=== PATIENT | female | born 1990 | race Caucasian/White ===

== ENCOUNTER 2019-10-12 11:19 | Outpatient (CLI) | payer OTHER, SELFPAY | END 2019-10-12 11:20 | disposition home or self-care (01) | LOC: ANHSURGERY 11:22 | PROVIDERS: PCP Family Medicine; Visit Provider Obstetrics & Gynecology | DX: Z01.812 Encounter for preprocedural laboratory examination (principal); N83.202 Unspecified ovarian cyst, left side | CPT/HCPCS: 36415; 86850; 86900; 86901 ==

== ENCOUNTER 2019-10-16 00:28 | Day surgery (SDC) | payer OTHER, SELFPAY ==
[2019-10-10 13:39] VITALS: BMI 31.6
--- NOTE | 2019-10-11 08:21 | PM.IMHP ---
H&P: HPI History of Present Illness Chief complaint: pelvic pain, left ovarian cyst Narrative: Doug Malik is a 28 year old female 4 para 3 who is admitted for laparoscopy and left ovarian cystectomy. She is complaining pain discomfort and dyspareunia. She uses vasectomy for control her periods have been irregular she is having pain with sex and pressure pelvis all the time. Ultrasound has shown left ovarian cyst. Risks, removed including the exclusive wish to Frances bleeding transfusion infection perforation injury bowel bladder ureters or other internal organs with need for open laparotomy. She was good understanding. She had all questions answered. She received the ACOG handout entitled laparoscopy. She asked to proceed Review of Systems Review of Systems: All systems reviewed & are unremarkable except as noted in HPI and below Meds Home Medications and Allergies Home Medications Medication Instructions Recorded Confirmed Type No Home Medications 10/10/19 10/10/19 History Allergies Allergy/AdvReac Type Severity Reaction Status Date / Time erythromycin base Allergy Unknown N/V, HIVES Verified 10/10/19 13:40 hydromorphone Allergy Unknown Hives / Unverified 10/10/19 13:40 Red Face, TACHYCARDIA codeine AdvReac Unknown N/V Unverified 10/10/19 13:40 Exam Const: General: no acute distress Eyes: General: appearance normal, both eyes and all related structures Neck: Neck: supple and no JVD Thyroid: thyroid normal Resp: Effort & Inspection: normal respiratory effort Auscultation: clear to auscultation bilaterally Cardio: Rate: regular rate Rhythm: regular rhythm GI: Inspection: non-distended GI Palp: Yes Soft to palpation, No Tenderness to palpation present (GI) and No Guarding due to palpation present (GI) Auscultation: normal bowel sounds : External Female Exam: normal external appearance Speculum Exam - Vagina: normal appearance of the vagina Speculum Exam - Cervix: normal appearance of the cervix Bimanual exam- vagina & uterus: bladder normal to palpation and uterine shape normal Bimanual Exam- Adnexa, other: tender (left fullness) Skin: General skin exam: no rashes or lesions noted Extrem: General: normal to inspection and no edema Psych: Mental Status: mental status grossly normal Affect: normal affect Assessment and Plan Additional Plan impression: Pelvic pain and left ovarian cyst. Plan: The laparoscopy and left ovarian cystectomy
[2019-10-16] VITALS (12 sets, daily range): BP systolic 99–122; BP diastolic 41–71; PULSE 62–79; RESP 12–24; TEMP 36.2–37.1; O2SAT 96–100; BMI 31.8
--- NOTE | 2019-10-16 09:13 | P.PNAN_ITS ---
Anes - Initial Pre Proc Eval Procedure: Operation Date: 10/16/19 10:00 Proposed Procedures p Diagnostic Laparoscopy, Left Ovarian Cystectomy - Arya Evans MD Date/Time: 10/16/19 09:13 Surgeon: Arya Evans MD Pre Op Diagnosis: pelvic pain, left ovarian cyst Patient Data Age: 28 Gender: F Height: 5 ft 3 in Weight: 81.19 kg Allergies Allergy/AdvReac Type Severity Reaction Status Date / Time erythromycin base Allergy Unknown N/V, HIVES Verified 10/16/19 08:39 hydromorphone Allergy Unknown Hives / Unverified 10/16/19 08:39 Red Face, TACHYCARDIA codeine AdvReac Unknown N/V Unverified 10/16/19 08:39 Home Medications Medication Instructions Recorded Confirmed Type hydrocodone-acetaminophen [[place]] 1 tablet PO Q4H PRN #30 tablet 10/16/19 Rx Patient hx anesthesia problems: none Family hx anesthesia problems: none PMFSH Past Medical History Medical History Depression Anes - Eval Final PreProcedure Day of Procedure 10/16/19 09:13 Patient weight: obese Heart: regular rate and rhythm Lungs: clear to auscultation Airway: Mallampati scale class II Neurological: alert and oriented Last oral intake: >/= 8 hours ASA classification: II Emergent: no Anesthetic plan: proceed Anesthesia type and monitoring: general ETT and standard monitoring Informed Consent: The patient's anesthetic plan and its attendant risks and benefits were discussed with the patient/family/POA. Questions were solicited and answers provided to the satisfaction of the patient/family/POA.
[2019-10-16] MEDS: LACTATED RINGERS 1,000 ML 30 ML IV CONT ×2 (09:16→10:50)
--- NOTE | 2019-10-16 09:52 | WPDHPUPDATE1 ---
History and Physical Update Update Date/Time: 10/16/19 09:52 History and Physical has been reviewed, including an updated exam of the patient. There are NO changes in the patient's condition. Risks, benefits, and alternatives have been discussed and questions answered. Patient agrees to proceed with procedure.
[2019-10-16] MEDS: KETOROLAC 30 MG/ML VIAL (*BKC) IV PUSH (10:15)
--- NOTE | 2019-10-16 10:26 | PM.PROC ---
Procedure Note - Detailed Date of procedure: 10/16/19 Pre-op diagnosis: pelvic pain, left ovarian cyst Surgeon: Arya Evans MD Postop diagnosis: Pelvic pain/bilateral ovarian cysts/minimal endometriosis Procedure: Laparoscopic destruction of bilateral ovarian cysts, destruction of endometriosis Anesthesia: General endotracheal EBL: 5cc Complications: None Findings: Bilateral ovarian cysts simple in nature small area of powder burn endometriosis along the left uterosacral ligament. Normal-appearing pelvis otherwise. Description procedure: The patient was prepped draped in the normal sterile fashion placed in the dorsal lithotomy position. Under excellent general tracheal anesthesia weighted speculum was placed post for vagina. Anterior lip of cervix was grasped with single-tooth tenaculum attached to the single-tooth to be used later for uterine manipulation. Bladder was emptied of clear urine. The weighted speculum was removed. Gloves were changed. An infraumbilical incision made and the Veress needle passed in the abdomen. The abdomen filled with CO2 gas [id number]. The 5mm trocar was advanced under direct visualization assuring no injury. The patient placed in Trendelenburg Trendelenburg. 5mm trocar was advanced in suprapubic area under direct visualization assuring no injury. Irrigation was undertaken to clear small area of endometriosis in the form of a blister was seen on the left uterosacral this was cauterized at 35 w per 2nd with monopolar cautery. The ovarian cysts were drained bilaterally of clear follicular fluid. Irrigation was undertaken to clear no other abnormalities were seen. The lower sites removed. The gas removed from the abdomen. The upper site removed. The incisions closed with 4 O Monocryl and glue. Instruments were from the vagina. All sponge, needle, instrument counts were correct. There were no immediate complications
--- NOTE | 2019-10-16 11:18 | SUR.PHASEI ---
1118 - CALLED AND UPDATED
== END 2019-10-16 13:36 | disposition home or self-care (01) ==
PROVIDERS: PCP Family Medicine; Visit Provider Obstetrics & Gynecology
PROC: (CPT 49320; principal; 2019-10-16 10:00)
DX: N83.202 Unspecified ovarian cyst, left side (principal); N83.201 Unspecified ovarian cyst, right side; N80.3 Endometriosis of pelvic peritoneum; R10.2 Pelvic and perineal pain; F32.9 Major depressive disorder, single episode, unspecified; E66.9 Obesity, unspecified; Z68.31 Body mass index [BMI] 31.0-31.9, adult
CPT/HCPCS: 58662; A9270; J0330; J1100; J1200; J1885; J2250; J2405; J2704; J3010; J7120

== ENCOUNTER 2020-02-14 00:22 | Outpatient (CLI) | payer OTHER, SELFPAY ==
[2020-02-14 18:11] LABS: SARS-CoV-2 RNA PCR Negative
== END 2020-02-14 00:23 | disposition home or self-care (01) ==
LOC: ANHCOVIDDT 00:22
PROVIDERS: Visit Provider Obstetrics & Gynecology
DX: Z20.828 Contact with and (suspected) exposure to other viral communicable diseases (principal); Z01.812 Encounter for preprocedural laboratory examination
CPT/HCPCS: 87635; C9803; U0003

== ENCOUNTER 2020-02-14 10:00 | Outpatient (CLI) | payer OTHER, SELFPAY ==
[2020-02-14 10:29] LABS: Hematocrit 45.4 % (37.0-47.0); Hemoglobin 15.7 g/dL (12.0-15.0)
== END 2020-02-14 10:01 | disposition home or self-care (01) ==
PROVIDERS: Visit Provider Obstetrics & Gynecology
DX: N92.6 Irregular menstruation, unspecified (principal)
CPT/HCPCS: 36415; 85014; 85018

== ENCOUNTER 2020-02-16 04:53 | Day surgery (SDC) | payer OTHER, SELFPAY ==
--- NOTE | 2020-02-13 07:54 | P.HP_ITS ---
H&P: HPI History of Present Illness Chief complaint: Uterine Polyp/ Irregular Bleeding Narrative: Catarena Irvin Malik is a 29 year old female is admitted for hysteroscopy and polypectomy and D&C. This had bleeding pain and discomfort. She had laparoscopic destruction of endometriosis in September and felt better. She continued to bleed irregularly since however an ultrasound shows thickened area with suspected uterine polyp risks and benefits of the procedure reviewed. Review of Systems Review of Systems: All systems reviewed & are unremarkable except as noted in HPI and below PMFSH Past Medical History Medical History Depression Meds Home Medications and Allergies Home Medications Medication Instructions Recorded Confirmed Type hydrocodone-acetaminophen [[place]] 1 tablet PO Q4H PRN #30 tablet 10/16/19 Rx Allergies Allergy/AdvReac Type Severity Reaction Status Date / Time erythromycin base Allergy Unknown N/V, HIVES Verified 10/16/19 08:39 hydromorphone Allergy Unknown Hives / Verified 10/16/19 10:50 Red Face, TACHYCARDIA codeine AdvReac Unknown N/V Verified 10/16/19 10:50 Exam Const: General: no acute distress Eyes: General: appearance normal, both eyes and all related structures Neck: Neck: supple and no JVD Thyroid: thyroid normal Resp: Effort & Inspection: normal respiratory effort Auscultation: clear to auscultation bilaterally Cardio: Rate: regular rate Rhythm: regular rhythm GI: Inspection: non-distended GI Palp: Yes Soft to palpation, No Tenderness to palpation present (GI) and No Guarding due to palpation present (GI) Auscultation: normal bowel sounds : General: Yes bladder normal to inspection External Female Exam: normal external appearance Bimanual exam- vagina & uterus: Uterine tenderness Bimanual Exam- Adnexa, other: tender OB/external & speculum: Active bleeding present Skin: General skin exam: no rashes or lesions noted Extrem: General: normal to inspection and no edema Psych: Mental Status: mental status grossly normal Affect: normal affect Assessment and Plan Additional Plan Impression: Excessive heavy bleeding with suspected polyp Plan: Hysteroscopy / polypectomy / dilatation curettage
[2020-02-13 08:10] VITALS: BMI 33.5
--- NOTE | 2020-02-16 06:32 | WPDHPUPDATE1 ---
History and Physical Update Update Date/Time: 02/16/20 06:32 History and Physical has been reviewed, including an updated exam of the patient. There are NO changes in the patient's condition. Risks, benefits, and alternatives have been discussed and questions answered. Patient agrees to proceed with procedure.
[2020-02-16] MEDS: LACTATED RINGERS 1,000 ML 30 ML IV CONT (09:05)
[2020-02-16] MEDS: ONDANSETRON INJ 4 MG/2 ML VIAL IV PUSH (09:05)
--- NOTE | 2020-02-16 09:31 | P.PNAN_ITS ---
Anes - Initial Pre Proc Eval Procedure: Operation Date: 02/16/20 10:30 Proposed Procedures p Hysteroscopy Dilation And Curettage, Polypectomy - Arya Evans MD Date/Time: 02/16/20 09:31 Surgeon: Arya Evans MD Pre Op Diagnosis: Uterine Polyp/ Irregular Bleeding Patient Data Age: 29 Gender: F Height: 5 ft 3 in Weight: 84.7 kg Allergies Allergy/AdvReac Type Severity Reaction Status Date / Time erythromycin base Allergy Unknown N/V, HIVES Verified 02/16/20 09:08 hydromorphone Allergy Unknown Hives / Verified 02/16/20 09:08 Red Face, TACHYCARDIA Home Medications Medication Instructions Recorded Confirmed Type acetaminophen [Tylenol] 325 mg PO DIRECTED PRN 02/13/20 02/16/20 History ibuprofen 200 mg PO Q6H PRN 02/13/20 02/16/20 History Patient hx anesthesia problems: none Family hx anesthesia problems: none [facility] Past Medical History Medical History Depression Social History Social History Gender identity (if verbalized by the patient): Female Anes - Eval Final PreProcedure Day of Procedure 02/16/20 09:31 Patient weight: obese Heart: regular rate and rhythm Lungs: clear to auscultation Airway: Mallampati scale class II Neurological: alert and oriented ASA classification: II Emergent: no Anesthetic plan: proceed Anesthesia type and monitoring: general GIVS and standard monitoring Informed Consent: The patient's anesthetic plan and its attendant risks and benefits were discussed with the patient/family/POA. Questions were solicited and answers provided to the satisfaction of the patient/family/POA.
[2020-02-16 09:34] VITALS: BP 112/64; PULSE 60; RESP 18; TEMP 36.2; O2SAT 100
--- NOTE | 2020-02-16 09:59 | PM.PROC ---
Procedure Note - Detailed Date of procedure: 02/16/20 Pre-op diagnosis: Uterine Polyp/ Irregular Bleeding Surgeon: Arya Evans MD Postop diagnosis: Irregular bleeding Procedure: Hysteroscopy / dilatation curettage Anesthesia: IV sedation and local Findings: Uterus sounded 8cm. Thick endometrial tissue Complications: None EBL: 5Cc Description of procedure: The patient was prepped and draped in normal sterile fashion and placed in the dorsal lithotomy position. Under excellent IV sedation weighted speculum placed in posterior fornix of vagina. Anterior lip of the cervix grasped with a single-tooth tenaculum. 2.5cc of 1% xylocaine anesthesia placed at 2, 4, 8, 10:00 a.m. of the cervix. Uterus sounded to 8cm. Serial dilatation with fragmented dilators performed. This was followed by passes the 5mm visualizing hysteroscope using normal saline as visualizing medium. Each fallopian tube os could be seen. Thick endometrial tissue was seen with clots but no evidence of polyp. The uterus was then scraped over the entire 360?. This was performed until a good grating sound was heard. When instruments were then removed. All sponge, needle, instrument counts were correct. There were no immediate complications
[2020-02-16 10:00] VITALS: BP 112/65; PULSE 65; RESP 14; O2SAT 94
[2020-02-16 10:30] VITALS: BP 114/64; PULSE 60; RESP 14
[2020-02-16 10:55] VITALS: BP 111/65; PULSE 65; RESP 18
[2020-02-16 11:15] VITALS: BP 115/74; PULSE 52; RESP 18
== END 2020-02-16 11:37 | disposition home or self-care (01) ==
PROVIDERS: Visit Provider Obstetrics & Gynecology
PROC: 0U5B8ZZ Destruction of Endometrium, Via Natural or Artificial Opening Endoscopic (ICD-10-PCS; CPT 58563; principal; 2020-02-16 10:30)
DX: N93.9 Abnormal uterine and vaginal bleeding, unspecified (principal); F32.9 Major depressive disorder, single episode, unspecified; E66.9 Obesity, unspecified; Z68.33 Body mass index [BMI] 33.0-33.9, adult
CPT/HCPCS: 58558; 88305; A9270; J2250; J2405; J2704; J7030; J7120

== ENCOUNTER 2020-03-12 11:28 | Emergency (ER) | payer OTHER, SELFPAY ==
[2020-03-12 11:41] VITALS: BP 122/78; PULSE 67; RESP 16; TEMP 36.9; O2SAT 100
[2020-03-12 12:19] LABS: Basophils Absolute Auto 0.1 K/mm3 (0.0-0.1); Basophils Percent Auto 1.8 % (0.2-1.2); Eosinophils Absolute Auto 0.2 K/mm3 (0-0.3); Eosinophils Percent Auto 2.6 % (0-4.4); Hematocrit 43.3 % (37.0-47.0); Immature Granulocyte Absolute 0.01 K/mm3 (0.00-0.031); Immature Granulocyte Percent A 0.2 % (0-0.5); Lymphocytes Absolute Auto 2.66 K/mm3 (0.9-3.2); Lymphocytes Percent Auto 40.8 % (18.3-44.2); Mean Corpuscular HGB Conc 34.6 g/dl (32-36); Mean Corpuscular Hemoglobin 28.6 pg (26-34); Mean Corpuscular Volume 82.6 fl (80-100); Mean Platelet Volume 10.1 fl (7.4-10.4); Monocytes Absolute Auto 0.5 K/mm3 (0.1-0.6); Monocytes Percent Auto 7.1 % (2.6-8.5); Neutrophils Absolute Auto 3.1 K/mm3 (1.3-6.7); Neutrophils Percent Auto 47.5 % (45.5-73.1); Platelet Count Result 314 k/mm3 (150-375); Red Blood Count 5.24 M/mm3 (4.2-5.4); Red Cell Distribution Width 11.8 % (11.5-14.5); White Blood Count 6.5 K/mm3 (4.5-10.0)
[2020-03-12 12:31] LABS: Blood Urea Nitrogen 8 mg/dL (7-17); Calcium 9.3 mg/dL (8.4-10.2); Carbon Dioxide 27 mmol/L (22-30); Chloride 105 mmol/L (98-107); Estimated CRCL calculation 124 ml/min; Estimated Glomerular Filt Rate > 60; Glucose 93 mg/dL (65-105); Potassium 4.1 mmol/L (3.4-5.0); Sodium 139 mmol/L (137-145)
--- NOTE | 2020-03-12 13:18 | ED.FEMALEGU ---
HPI - Female Genitourinary General Chief complaint: Vaginal Bleeding Stated complaint: heavy vag bleeding, abd pain Time Seen by Provider: 03/12/20 13:17 History of Present Illness HPI Narrative: Heavy vaginal bleeding and pelvic pain since yesterday. Reports going through greater than 1 pad per hour. Pain is severe and bilateral. She has a h/o endometriosis and irregular periods. She had an ablation 1 month ago. No fever, chills, nausea, vomiting, diarrhea. Related Data Home Medications Medication Instructions Recorded Confirmed acetaminophen [Tylenol] 325 mg PO DIRECTED PRN 02/13/20 02/16/20 ibuprofen 200 mg PO Q6H PRN 02/13/20 02/16/20 Allergies Allergy/AdvReac Type Severity Reaction Status Date / Time erythromycin base Allergy Unknown N/V, HIVES Verified 02/16/20 09:08 hydromorphone Allergy Unknown Hives / Verified 02/16/20 09:08 Red Face, TACHYCARDIA Review of Systems Review of Systems: All systems reviewed & are unremarkable except as noted in HPI and below PMFSH Past Medical History Medical History Depression Endometriosis Surgical History Surgical History History of endometrial ablation Social History Social History Gender identity (if verbalized by the patient): Female Exam Const: General: healthy appearing, no acute distress and alert Orientation/consciousness: patient oriented x3 HENMT: Head: normal to inspection Neck: Neck: normal visual inspection and no lymphadenopathy Chest: Chest palpation & inspection: no tenderness Resp: Effort & Inspection: normal respiratory effort Auscultation: clear to auscultation bilaterally, no rales, no rhonchi and no wheezes Cardio: Jugular venous distension: no JVD Rate: regular rate Rhythm: regular rhythm Heart sounds: no murmurs GI: Inspection: non-distended GI Palp: Yes Soft to palpation and No Tenderness to palpation present (GI) : Speculum Exam - Vagina: normal appearance of the vagina and vaginal bleeding (moderate bleeding) Skin: General skin exam: normal color Neuro: General: patient oriented x3 and moves all extremities Speech: normal speech Extrem: General: no edema Psych: Appearance: well kempt Affect: normal affect Course Vital Signs Vital signs: Vital Signs Temperature 36.9 C 03/12/20 11:41 Pulse Rate 67 03/12/20 11:41 Respiratory Rate 16 03/12/20 11:41 Blood Pressure 122/78 03/12/20 11:41 Pulse Oximetry 100 03/12/20 11:41 Temperature 36.9 C 03/12/20 11:41 Pulse Rate 51 L 03/12/20 15:50 Respiratory Rate 20 03/12/20 15:50 Blood Pressure 111/74 03/12/20 15:50 Pulse Oximetry 99 03/12/20 15:50 MDM - Female Genitourinary MDM Narrative Medical decision making narrative: H/H stable. Case discussed with Dr. Evans. Recommends starting Provera and having her follow-up with him. Medical Records Attestation: I reviewed the patient's medical records. Lab Data Attestation: I reviewed the patient's lab results. Result diagrams: 03/12/20 11:55 03/12/20 11:55 Labs: Lab Results 03/12/20 03/12/20 03/12/20 Range/Units 11:55 11:55 13:24 WBC 6.5 (4.5-10.0) K/mm3 RBC 5.24 (4.2-5.4) M/mm3 Hgb 15.0 (12.0-15.0) g/dL Hct 43.3 (37.0-47.0) % MCV 82.6 (80-100) fl MCH 28.6 (26-34) pg MCHC 34.6 (32-36) g/dl RDW 11.8 (11.5-14.5) % Plt Count 314 (150-375) k/mm3 MPV 10.1 (7.4-10.4) fl Immature Gran % (Auto) 0.2 (0-0.5) % Neut % (Auto) 47.5 (45.5-73.1) % Lymph % (Auto) 40.8 (18.3-44.2) % [place] % (Auto) 7.1 (2.6-8.5) % Eos % (Auto) 2.6 (0-4.4) % Baso % (Auto) 1.8 H (0.2-1.2) % Lymph # (Auto) 2.66 (0.9-3.2) K/mm3 [place] # (Auto) 0.5 (0.1-0.6) K/mm3 Eos # (Auto) 0.2 (0-0.3) K/mm3 Baso # (Auto)
[2020-03-12 13:40] LABS: Add Urine Microscopic? YES; Appearance Urine Cloudy (Clear); Bacteria Urine Trace /hpf; Bilirubin Urine Negative (Negative); Blood Urine 3+ (Negative); Color Urine Yellow (Yellow); Glucose Urine UA Negative (Negative); Ketones Urine Negative (Negative); Leukocyte Esterase Ur Negative LEU/UL (Negative); Mucus Urine Few /lpf; Nitrate Urine Negative (Negative); Protein Urine 1+ mg/dL (Negative); RBC Urine >75 /hpf (0-2); Specific Grav Ur 1.018 (1.001-1.035); Squamous Epithelial Cell Urine Rare /hpf (Few); Urobilinogen Urine Negative mg/dL (<2.0)
[2020-03-12 15:50] VITALS: BP 111/74; PULSE 51; RESP 20; O2SAT 99
== END 2020-03-12 16:14 | disposition home or self-care (01) ==
PROVIDERS: Emergency Provider Emergency Medicine
DX: N92.1 Excessive and frequent menstruation with irregular cycle (principal)
CPT/HCPCS: 36415; 80048; 81001; 81025; 85025; 87086; 99284; A9270

== ENCOUNTER 2020-03-22 08:23 | Outpatient (CLI) | payer OTHER, SELFPAY | END 2020-03-22 08:24 | disposition home or self-care (01) | PROVIDERS: Visit Provider Obstetrics & Gynecology | DX: Z01.818 Encounter for other preprocedural examination (principal); Z98.890 Other specified postprocedural states | CPT/HCPCS: 36415; 86850; 86900; 86901 ==

== ENCOUNTER 2020-03-27 01:14 | Outpatient (CLI) | payer OTHER, SELFPAY ==
[2020-03-27 19:18] LABS: SARS-CoV-2 RNA PCR Negative
== END 2020-03-27 01:15 | disposition home or self-care (01) ==
LOC: ANHCOVIDDT 01:14
PROVIDERS: Visit Provider Obstetrics & Gynecology
DX: Z01.812 Encounter for preprocedural laboratory examination (principal); Z11.59 Encounter for screening for other viral diseases
CPT/HCPCS: 87635; C9803; U0003

== ENCOUNTER 2020-03-29 02:34 | Day surgery (SDC) | payer OTHER, SELFPAY ==
[2020-03-20 09:24] VITALS: BMI 32.2
--- NOTE | 2020-03-27 10:35 | PM.IMHP ---
H&P: HPI History of Present Illness Chief complaint: Pelvic Pain, Irr Bleeding, Dypurenia, Enlarged [place] Narrative: Doug Malik is a 29 year old female G4 P for 6 minutes for robotic total vaginal tract me and bilateral salpingectomy. She has had a long history of pelvic pain and dyspareunia bleeding has been refractory to medical therapy she has had a enlarged ultra sound uterus and prolapse. She has underwent D&C and laparoscopy help permanence of this was reviewed full details risks and benefits were reviewed including but not exclusive , aspiration pneumonia, bleeding, transfusion, perforation injury to bowel, bladder, ureters or other internal organs with need for laparotomy. She voiced good understanding. She received the ACOG handout entitled hysterectomy as well as div in she handout. She had all questions answered and asked to proceed Review of Systems Review of Systems: All systems reviewed & are unremarkable except as noted in HPI and below PMFSH Past Medical History Medical History Depression Endometriosis Surgical History Surgical History History of endometrial ablation Social History Social History Smoking status: Never smoker Gender identity (if verbalized by the patient): Female Spiritual care concerns: No Meds Home Medications and Allergies Home Medications Medication Instructions Recorded Confirmed Type acetaminophen [Tylenol] 325 mg PO DIRECTED PRN 02/13/20 03/20/20 History ibuprofen 200 mg PO Q6H PRN 02/13/20 03/20/20 History medroxyprogesterone [Provera] 10 mg PO DAILY #20 tablet 03/12/20 03/20/20 Rx Allergies Allergy/AdvReac Type Severity Reaction Status Date / Time erythromycin base Allergy Unknown N/V, HIVES Verified 03/20/20 09:25 hydromorphone Allergy Unknown Hives / Verified 03/20/20 09:25 Red Face, TACHYCARDIA Exam Const: General: no acute distress Eyes: General: appearance normal, both eyes and all related structures Neck: Neck: supple and no JVD Thyroid: thyroid normal Resp: Effort & Inspection: normal respiratory effort Auscultation: clear to auscultation bilaterally Cardio: Rate: regular rate Rhythm: regular rhythm GI: Inspection: non-distended GI Palp: Yes Soft to palpation, No Tenderness to palpation present (GI) and No Guarding due to palpation present (GI) Auscultation: normal bowel sounds : General: Yes bladder normal to inspection External Female Exam: normal external appearance Speculum Exam - Vagina: normal appearance of the vagina Speculum Exam - Cervix: normal appearance of the cervix ( second-degree prolapse is seen) Bimanual exam- vagina & uterus: enlarged and Uterine tenderness Bimanual Exam- Adnexa, other: normal adnexae Skin: General skin exam: no rashes or lesions noted Extrem: General: normal to inspection and no edema Psych: Mental Status: mental status grossly normal Affect: normal affect Assessment and Plan Additional Plan impressure: Pelvic prolapse/ pelvic pain / bleeding refractory to medical therapy Plan: Robotic total vaginal hysterectomy and bilateral salpingectomy
--- NOTE | 2020-03-28 11:56 | P.PNAN_ITS ---
Anes - Initial Pre Proc Eval Procedure: Operation Date: 03/29/20 07:30 Proposed Procedures p Robotic Assisted Total Vaginal Hysterectomy With Bilateral Salpingectomy - Arya Evans MD Date/Time: 03/28/20 11:56 Surgeon: Arya Evans MD Pre Op Diagnosis: Pelvic Pain, Irr Bleeding, Dypurenia, Enlarged [place] Patient Data Age: 29 Gender: F Height: 5 ft 3 in Weight: 82.55 kg Allergies Allergy/AdvReac Type Severity Reaction Status Date / Time erythromycin base Allergy Unknown N/V, HIVES Verified 03/29/20 06:37 hydromorphone Allergy Unknown Hives / Verified 03/29/20 06:37 Red Face, TACHYCARDIA Home Medications Medication Instructions Recorded Confirmed Type acetaminophen [Tylenol] 325 mg PO DIRECTED PRN 02/13/20 03/29/20 History ibuprofen 200 mg PO Q6H PRN 02/13/20 03/29/20 History medroxyprogesterone [Provera] 10 mg PO DAILY #20 tablet 03/12/20 03/29/20 Rx hydrocodone-acetaminophen [[place]] 1 tablet PO Q4H PRN #30 tablet 03/29/20 Rx Patient hx anesthesia problems: none Family hx anesthesia problems: none PMFSH Past Medical History Medical History Depression Endometriosis Surgical History Surgical History History of endometrial ablation Social History Social History Smoking status: Never smoker Gender identity (if verbalized by the patient): Female Spiritual care concerns: No Anes - Eval Final PreProcedure Day of Procedure 03/28/20 11:56 Patient weight: normal Heart: regular rate and rhythm Lungs: clear to auscultation Airway: Mallampati scale class II Neurological: alert and oriented Last oral intake: >/= 8 hours ASA classification: II Emergent: no Anesthetic plan: proceed Anesthesia type and monitoring: general ETT and standard monitoring Informed Consent: The patient's anesthetic plan and its attendant risks and benefits were discussed with the patient/family/POA. Questions were solicited and answers provided to the satisfaction of the patient/family/POA.
[2020-03-29] VITALS (16 sets, daily range): BP systolic 100–132; BP diastolic 49–74; PULSE 55–104; RESP 12–20; TEMP 36.2–37.1; O2SAT 95–100; BMI 32.2
--- NOTE | 2020-03-29 06:40 | WPDHPUPDATE1 ---
History and Physical Update Update Date/Time: 03/29/20 06:40 History and Physical has been reviewed, including an updated exam of the patient. There are NO changes in the patient's condition. Risks, benefits, and alternatives have been discussed and questions answered. Patient agrees to proceed with procedure.
[2020-03-29] MEDS: LACTATED RINGERS 1,000 ML 30 ML IV CONT ×3 (06:50→09:09)
[2020-03-29] MEDS: ceFAZolin 2 GM/D5W 50 ML 2 GM/50 ML BAG IVPB (07:23)
[2020-03-29] MEDS: KETOROLAC 30 MG/ML VIAL (*BKC) IV PUSH ×2 (07:41→13:35)
--- NOTE | 2020-03-29 08:25 | PM.PROC ---
Procedure Note - Detailed Date of procedure: 03/29/20 Pre-op diagnosis: Pelvic Pain, Irr Bleeding, Dypurenia, Enlarged [place] Surgeon: Arya Evans MD Postop diagnosis: Pelvic pain /irregular bleeding /dyspareunia /enlarged uterus Procedure: Robotic total vaginal hysterectomy and bilateral salpingectomies EBL: 50cc Anesthesia: General endotracheal Complications: None Findings: Enlarged uterus Description of procedure: The patient was prepped and draped in the normal sterile fashion and placed in the dorsal lithotomy position. Under excellent general endotracheal anesthesia weighted speculum was placed in the posterior fornix of the vagina. Anterior lip of the cervix was grasped with a single-tooth tenaculum. Uterus sounded to 10cm. Serial dilatation with fragmented dilators was performed. This was followed by passage of the 10. ESDRAS and the 3. Cold cup. A 16 [place] catheter was then placed. The remainder the instruments remove and gloves were changed. A supraumbilical incision was made and the Veress needle passed in the abdomen. The abdomen was filled with CO2 gas [id number]. The 8mm trocar was advanced in the abdomen. The downside visualized. No injury seen. The patient was placed in Trendelenburg. 8Mm incisions were made the right left lower quadrant and the 8mm trocars advanced under direct visualization assuring no injury. A right upper quadrant incision made and the 10mm trocar advanced under direct visualization assuring no injury. The robot was docked. Attention was turned to the console. The left round ligament was grasped. Clamped, burned, cut and a incision made across the cervix retracting the bladder caudally from the uterus and cervix to the opposite round ligament. This was clamped, burned, cut. Next the left tube was dissected away from the ovary. To be taken with the specimen. The right fallopian tube was removed in the same manner. Next the left utero-ovarian ligament was skeletonized conserving left ovary clamped, burned, cut and brought to the level of the previously cut round ligament. Conserving the right ovary the utero-ovarian ligament was clamped, burned, cut and brought to the level of the previously cut round ligament. The left cardinal and broad ligaments were then serially skeletonized. These were clamped, burned, cut and brought down the lateral edge of the uterus once the uterine vessels could be seen there were large and tortuous. Each was individually clamped, burned, cut. In like fashion the cardinal and broad ligaments were serially skeletonized. They were clamped, burned, cut until the uterine vessels could be seen these were individually clamped, burned, cut. Excellent blanching the uterus was seen and a colpotomy incision was made. The cervix uterus and tubes removed through the vagina. Blood loss estimated about 50cc the vagina was closed with continuous running 0V lock from lateral edge to lateral edge and back to the midline. Irrigation undertaken until clear and the pedicles appeared dry. The base was then sprinkled with [place] derm in the raw areas. The robot was undocked. The gas removed from the abdomen. The trocars were removed and the incisions closed with 4 Monocryl and glue. The patient was awakened. All sponge, needle, instrument counts were correct. There were no immediate complications
[2020-03-29] MEDS: DEXTROSE 5%/LACTATED RINGERS 1,000 ML 125 ML IV CONT (10:34)
[2020-03-29] MEDS: DOCUSATE SODIUM 100 MG CAPSULE PO (19:00)
[2020-03-29] MEDS: SIMETHICONE 80 MG TAB.CHEW PO (22:15)
[2020-03-29] MEDS: IBUPROFEN 600 MG TABLET PO (22:15)
[2020-03-30 02:49] VITALS: PULSE 88; RESP 14; O2SAT 95
[2020-03-30] MEDS: IBUPROFEN 600 MG TABLET PO ×2 (04:41→12:33)
[2020-03-30] MEDS: SIMETHICONE 80 MG TAB.CHEW PO ×2 (04:43→09:40)
[2020-03-30 04:45] VITALS: BP 103/56; PULSE 65; RESP 14; TEMP 36.9; O2SAT 98
--- NOTE | 2020-03-30 06:43 | P.DS_ITS ---
DS: Admitting Diagnosis Admitting Diagnosis Admitting Diagnosis: Other specified postprocedural states DS: Summary Hospital Course Hospital Course: Doug Malik was admitted after robotic assisted total laparoscopic hysterectomy and bilateral salpingectomy for pelvic pain, dyspareunia, and abnormal uterine bleeding. The above procedure was performed with no complications. She is doing well post op. She states her pain is well controlled with PO medications. She reports minimal bleeding. She is ambulating up to the chair. Her zaidi catheter was removed. She is tolerating PO without N/V. She reports passing flatus. Status at Discharge Overall status at discharge: patient is progressing back to baseline Time Spent with Patient Time attestation: Total time spent providing and/or coordinating discharge services: Time spent: Less than 30 minutes Exam Const: General: comfortable and no acute distress Limitations: no limitati ons Resp: Effort & Inspection: normal respiratory effort Auscultation: clear to auscultation bilaterally Cardio: Rate: regular rate Rhythm: regular rhythm GI: Inspection: non-distended GI Palp: Yes Soft to palpation, Yes Tenderness to palpation present (GI) (milder tenderness to deep palpation) and No Guarding due to palpation present (GI) Auscultation: normal bowel sounds Other: incisions C/D/I covered with dermabond Urinary Catheter: Urinary Catheter: urine clear Skin: General skin exam: normal color Extrem: General: normal to inspection Psych: Mental Status: mental status grossly normal Affect: normal affect DS: Data Data Completed and Pending Pending studies at discharge: Pending at discharge 03/29/20 08:12 Surgical [PTH] Routine Discharge Plan Discharge Patient Disposition: Home, Self-Care Patient Instructions: Laparoscopic Hysterectomy (DC) Follow-up/Referrals: Arya Evans MD [Physician] - Discharge Medications: New hydrocodone-acetaminophen [[place]] 5-325 mg tablet 1 tablet PO Q4H PRN (Reason: pain) Qty: 30 RF: 0 No Action ibuprofen 200 mg Tablet 200 mg PO Q6H PRN (Reason: Pain, Mild) RF: 0 acetaminophen [Tylenol] 325 mg Capsule 325 mg PO DIRECTED PRN (Reason: Pain, Mild) RF: 0 medroxyprogesterone [Provera] 10 mg tablet 10 mg PO DAILY Qty: 20 RF: 0 Primary Care Provider: PHYSICIAN,MAGAZINE WORKER Attending physician on admission: Arya Evans
[2020-03-30 07:05] VITALS: BP 107/48; PULSE 71; RESP 18; TEMP 36.6; O2SAT 95
[2020-03-30] MEDS: ONDANSETRON INJ 4 MG/2 ML VIAL IV PUSH (07:18)
[2020-03-30 08:00] LABS: Hematocrit 40.1 % (37.0-47.0); Mean Corpuscular HGB Conc 34.9 g/dl (32-36); Mean Corpuscular Hemoglobin 28.9 pg (26-34); Mean Corpuscular Volume 82.7 fl (80-100); Mean Platelet Volume 10.5 fl (7.4-10.4); Platelet Count Result 263 k/mm3 (150-375); Red Blood Count 4.85 M/mm3 (4.2-5.4); Red Cell Distribution Width 11.9 % (11.5-14.5)
[2020-03-30] MEDS: DOCUSATE SODIUM 100 MG CAPSULE PO (09:40)
--- NOTE | 2020-03-30 09:51 | WPDANESPN ---
Anes - Prog Note Post-Op Date/Time: 03/30/20 09:51 Cardiovascular status: normal Respiratory status: normal Airway patency: baseline Mental status: baseline Post-Op hydration status: normal Vital Signs: Last Vital Signs Temp 36.9 C 03/30/20 04:45 Pulse 65 03/30/20 04:45 Resp 14 03/30/20 04:45 BP 103/56 L 03/30/20 04:45 Pulse Ox 98 03/30/20 04:45 I/O: Intake & Output 03/29/20 03/30/20 03/30/20 23:59 07:59 15:59 Intake Total 1740 750 Output Total 775 1000 Balance 965 -250 Laboratory Tests 03/30/20 07:38 03/30/20 07:38 WBC 15.0 H RBC 4.85 Hgb 14.0 Hct 40.1 MCV 82.7 MCH 28.9 MCHC 34.9 RDW 11.9 Plt Count 263 MPV 10.5 H Post-procedural complaints: none Patient Feedback: Patient satisfied with anesthetic care.
--- NOTE | 2020-03-30 09:52 | WPDANESPN ---
Anes - Prog Note Post-Op Date/Time: 03/30/20 09:52 Cardiovascular status: normal Respiratory status: normal Airway patency: baseline Mental status: baseline Post-Op hydration status: normal Vital Signs: Last Vital Signs Temp 36.9 C 03/30/20 04:45 Pulse 65 03/30/20 04:45 Resp 14 03/30/20 04:45 BP 103/56 L 03/30/20 04:45 Pulse Ox 98 03/30/20 04:45 I/O: Intake & Output 03/29/20 03/30/20 03/30/20 23:59 07:59 15:59 Intake Total 1740 750 Output Total 775 1000 Balance 965 -250 Laboratory Tests 03/30/20 07:38 03/30/20 07:38 WBC 15.0 H RBC 4.85 Hgb 14.0 Hct 40.1 MCV 82.7 MCH 28.9 MCHC 34.9 RDW 11.9 Plt Count 263 MPV 10.5 H Post-procedural complaints: none Patient Feedback: Patient satisfied with anesthetic care.
--- NOTE | 2020-03-30 13:19 | PC.NURSE ---
0718 Zofran 4mg IVP given for c/o nausea with good relief reported by pt. 1300 Pt has her discharge papers; she states she has read through them. Questions answered. Discharge papers signed in understanding.
== END 2020-03-30 14:02 | disposition home or self-care (01) ==
LOC: ANHSURGERY 06:41 → ANHOB2 09:57
PROVIDERS: Student in an Organized Health Care Education/Training Program; Visit Provider Obstetrics & Gynecology
PROC: (CPT 58552; principal; 2020-03-29 07:30)
DX: R10.2 Pelvic and perineal pain (principal); N92.6 Irregular menstruation, unspecified; N94.10 Unspecified dyspareunia; N80.0 Endometriosis of uterus; Z87.42 Personal history of other diseases of the female genital tract; F32.9 Major depressive disorder, single episode, unspecified
CPT/HCPCS: 58552; S2900; 36415; 85027; 88307; 99199; A9270; J0131; J0330; J0690; J1100; J1170; J1200; J1885; J2250; J2405; J2704; J2710; J3010; J7030; J7120; J7121

== ENCOUNTER → 2021-02-18 02:11 | Outpatient (CLI) | payer OTHER, SELFPAY ==
[2021-02-20 08:27] LABS: SARS-CoV-2 RNA PCR Negative
== END ==
PROVIDERS: Visit Provider Obstetrics & Gynecology
DX: Z01.812 Encounter for preprocedural laboratory examination (principal); Z20.822 Contact with and (suspected) exposure to COVID-19
CPT/HCPCS: 86850; 86900; 86901; C9803; U0003; U0005

== ENCOUNTER 2021-02-18 09:39 | Outpatient (CLI) | payer OTHER, SELFPAY | END 2021-02-18 09:40 | disposition home or self-care (01) | LOC: ANHSURGERY 09:44 | PROVIDERS: Visit Provider Obstetrics & Gynecology | DX: Z01.812 Encounter for preprocedural laboratory examination (principal); R10.2 Pelvic and perineal pain | CPT/HCPCS: 36415; 86850; 86900; 86901 ==

== ENCOUNTER 2021-02-21 02:13 | Day surgery (SDC) | payer OTHER, SELFPAY ==
[2021-02-13 10:43] VITALS: BMI 33.2
--- NOTE | 2021-02-19 06:58 | PM.IMHP ---
H&P: HPI History of Present Illness Date/Time: 02/19/21 06:58 29-year-old 4 para 4 admitted for laparoscopy secondary to chronic pelvic pain and dyspareunia. She had a negative ultrasound she had negative STD testing. She is having severe pelvic pain she is status post hysterectomy but ovaries remain. Risks and benefits reviewed in full including but not exclusive of , aspiration pneumonia, bleeding, transfusion, perforation injury to bowel, bladder, ureters, or other internal organs with need for open laparotomy. She received the [employer] handout entitled laparoscopy. She had all questions answered. She asked to proceed Chief Complaint: pelvic pain Review of Systems Review of Systems: All systems reviewed & are unremarkable except as noted in HPI and below PMFSH Past Medical History Medical History Depression Endometriosis Surgical History Surgical History History of endometrial ablation Social History Social History Smoking status: Never smoker Second hand tobacco smoke exposure: No Alcohol intake: never Substance use: never Substance use type: does not use Gender identity (if verbalized by the patient): Female Spiritual care concerns: No Meds Home Medications and Allergies Home Medications Medication Instructions Recorded Confirmed Type acetaminophen [Tylenol] 325 mg PO DIRECTED PRN 02/13/20 02/13/21 History ibuprofen 200 mg PO Q6H PRN 02/13/20 02/13/21 History venlafaxine [Effexor] 25 mg PO QAM 02/13/21 02/13/21 History venlafaxine [Effexor] 200 mg PO QAM 02/13/21 02/13/21 History Allergies Allergy/AdvReac Type Severity Reaction Status Date / Time erythromycin base Allergy Unknown N/V, HIVES Verified 02/13/21 10:40 hydromorphone Allergy Unknown Hives / Verified 02/13/21 10:40 Red Face, TACHYCARDIA Exam Const: General: no acute distress Eyes: General: appearance normal, both eyes and all related structures Neck: Neck: supple and no JVD Thyroid: thyroid normal Resp: Effort & Inspection: normal respiratory effort Auscultation: clear to auscultation bilaterally Cardio: Rate: regular rate Rhythm: regular rhythm GI: Inspection: non-distended GI Palp: Yes Soft to palpation, No Tenderness to palpation present (GI) and No Guarding due to palpation present (GI) Auscultation: normal bowel sounds : External Female Exam: normal external appearance Speculum Exam - Vagina: normal appearance of the vagina Speculum Exam - Cervix: Cervix absent Bimanual exam- vagina & uterus: uterus absent Bimanual Exam- Adnexa, other: tender bilaterally Skin: General skin exam: no rashes or lesions noted Extrem: General: normal to inspection and no edema Psych: Mental Status: mental status grossly normal Affect: normal affect Assessment and Plan Additional Plan impression: Pelvic pain Plan: Diagnostic laparoscopy
[2021-02-21] VITALS (14 sets, daily range): BP systolic 103–131; BP diastolic 49–98; PULSE 82–104; RESP 15–20; TEMP 35.5–36.2; O2SAT 99–100
--- NOTE | 2021-02-21 06:56 | WPDHPUPDATE1 ---
History and Physical Update Update Date/Time: 02/21/21 06:56 History and Physical has been reviewed, including an updated exam of the patient. There are NO changes in the patient's condition. Risks, benefits, and alternatives have been discussed and questions answered. Patient agrees to proceed with procedure.
--- NOTE | 2021-02-21 08:37 | WPDANESEPPF ---
Anes - Initial Pre Proc Eval Procedure: Operation Date: 02/21/21 09:30 Proposed Procedures p Diagnostic Laparoscopy - Arya Evans MD Date/Time: 02/21/21 08:37 Surgeon: Arya Evans MD Pre Op Diagnosis: pelvic pain, cramping Patient Data Age: 30 Gender: F Height: 1.6 m Weight: 85 kg Allergies Allergy/AdvReac Type Severity Reaction Status Date / Time erythromycin base Allergy Unknown N/V, HIVES Verified 02/13/21 10:40 hydromorphone Allergy Unknown Hives / Verified 02/13/21 10:40 Red Face, TACHYCARDIA Home Medications Medication Instructions Recorded Confirmed Type acetaminophen [Tylenol] 325 mg PO DIRECTED PRN 02/13/20 02/13/21 History ibuprofen 200 mg PO Q6H PRN 02/13/20 02/13/21 History venlafaxine [Effexor] 25 mg PO QAM 02/13/21 02/13/21 History venlafaxine [Effexor] 200 mg PO QAM 02/13/21 02/13/21 History tramadol 50 mg PO Q4H PRN #20 tablet 02/21/21 Rx Patient hx anesthesia problems: none Family hx anesthesia problems: none [facility] Past Medical History Medical History (Updated 02/21/21 @ 08:37 by Arya Pillai MD) Depression Endometriosis Obesity Surgical History Surgical History (Updated 02/21/21 @ 08:38 by Arya Pillai MD) H/O laparoscopy H/O: hysterectomy History of endometrial ablation Social History Social History Smoking status: Never smoker Second hand tobacco smoke exposure: No Alcohol intake: never Substance use: never Substance use type: does not use Living arrangements: with family Gender identity (if verbalized by the patient): Female Spiritual care concerns: No Anes - Eval Final PreProcedure Day of Procedure 02/21/21 08:37 Patient weight: obese Heart: regular rate and rhythm Lungs: clear to auscultation Airway: Mallampati scale class II and other (two broken upper molars) Neurological: alert and oriented Last oral intake: >/= 8 hours ASA classification: II Emergent: no Anesthetic plan: proceed Anesthesia type and monitoring: general ETT and standard monitoring Informed Consent: The patient's anesthetic plan and its attendant risks and benefits were discussed with the patient/family/POA. Questions were solicited and answers provided to the satisfaction of the patient/family/POA.
[2021-02-21] MEDS: LACTATED RINGERS 1,000 ML 30 ML IV CONT ×2 (08:48→10:06)
[2021-02-21] MEDS: KETOROLAC 15 MG/ML VIAL (*BKC) IV PUSH (08:49)
[2021-02-21] MEDS: ACETAMINOPHEN 500 MG TABLET 1000 MG PO (08:49)
--- NOTE | 2021-02-21 09:53 | W.PM.PROC2 ---
Procedure Note - Detailed Date of Procedure 02/21/21 Pre-op Diagnosis pelvic pain, cramping Post-op Diagnosis other (Pelvic pain/right ovarian cyst/pelvic adhesions/mild endometriosis) Procedure Performed Laparoscopic lysis of adhesions/destruction of endometriosis/destruction of endometriosis Surgeon Arya Evans MD Anesthesia general Indications This patient was admitted with pelvic pain and a history of previous hysterectomy. Findings Absent uterus and tubes. Pelvic adhesions over the vaginal cuff. A small area of endometriosis along the right uterosacral ligament. A moderate size right simple ovarian cyst. Description of Procedure Patient was prepped draped in sterile fashion placed in dorsal lithotomy position. Under excellent general endotracheal anesthesia sponge stick was placed in the vagina and bladder emptied of clear urine. The weighted speculum was removed and the gloves were changed. A supraumbilical incision made and Veress needle passed in the abdomen. Abdomen filled with CO2 gas [id number]. The 5mm trocar advanced under direct visualization assuring no injury. The patient placed in Trendelenburg and a suprapubic incision made. The 5mm trocar advanced under direct visualization assuring injury. Adhesions were seen completely covering the vaginal cuff. Using Endo Winnie these were sharply dissected and the uterus was noted to be absent. Adhesions were seen to the ovaries vaginal cuff bilaterally after this was cleared irrigation was undertaken. Small area of powder burn endometriosis was seen along right uterosacral ligament and this was cauterized at 35 w per 2nd. A moderate size right ovarian cyst was seen and this was opened in linear fashion and drained of clear fluid: Irrigation undertaken to clear. Photo documentation was undertaken. No other abnormalities were seen in the lower site was removed. The gas removed from the abdomen in the upper site removed. Incisions closed with 4 O Monocryl and glue. The patient was awakened and went to recovery in satisfactory condition. All sponge, needle, instrument counts were correct. There were no immediate complications Estimated Blood Loss 5 Drains No Packing No Pathology none sent Complications No immediate complications Condition stable Disposition floor
[2021-02-21] MEDS: fentaNYL CITRATE INJ (*CRX) 100 MCG/2 ML VIAL 25 MCG IV PUSH ×8 (10:14→10:55)
[2021-02-21] MEDS: oxyCODONE HCL (*CRX) 5 MG TAB IR PO (11:46)
== END 2021-02-21 12:39 | disposition home or self-care (01) ==
PROVIDERS: Visit Provider Obstetrics & Gynecology
PROC: (CPT 49320; principal; 2021-02-21 09:30)
DX: R10.2 Pelvic and perineal pain (principal); N80.3 Endometriosis of pelvic peritoneum; N83.201 Unspecified ovarian cyst, right side; N73.6 Female pelvic peritoneal adhesions (postinfective); F32.9 Major depressive disorder, single episode, unspecified; E66.9 Obesity, unspecified; Z68.33 Body mass index [BMI] 33.0-33.9, adult; N94.10 Unspecified dyspareunia; Z90.710 Acquired absence of both cervix and uterus
CPT/HCPCS: 58662; A9270; J0330; J1100; J1170; J1200; J1885; J2250; J2405; J2704; J3010; J7030; J7120

== ENCOUNTER 2021-10-19 15:42 | Emergency (ER) | payer OTHER, SELFPAY ==
--- NOTE | ~2021-10-19 | XR_ITS ---
EXAMINATION: XR elbow LT min 3V DATE: 10/19/2021 16:09 INDICATION: Left elbow pain post fall TECHNIQUE: Anteroposterior, two oblique and lateral views of the left elbow were obtained. COMPARISON: None. FINDINGS: Alignment is normal. No fracture or joint effusion. Joint spaces are normal. Soft tissues are unremar kable. IMPRESSION: 1. Negative left elbow radiographs. Reviewed, dictated and finalized at location A. TO LOG OPERATOR
--- NOTE | ~2021-10-19 | XR_ITS ---
EXAMINATION: XR shoulder LT min 2V DATE: 10/19/2021 16:14 INDICATION: Generalized stiffness at the left shoulder post fall TECHNIQUE: AP internally and externally rotated, AP oblique externally rotated, axillary and transsca pular Y views of the left shoulder were obtained. COMPARISON: None FINDINGS: Normal alignment. No fracture. Glenohumeral joint is normal. Acromioclavicular joint is normal. Soft tissues are unremarkable. Visualized portions of the lungs are clear. IMPRESSION: Negative left shoulder radiographs. Reviewed, dictated and finalized at location A. SELLER
[2021-10-19 15:47] VITALS: BP 150/85; PULSE 93; RESP 18; TEMP 37.1; O2SAT 97
--- NOTE | 2021-10-19 15:50 | ED.UPPEXIN ---
HPI - Extremity Injury (Upper) General Chief Complaint: Extremity Injury, Upper Stated Complaint: fall Time Seen by Provider: 10/19/21 15:50 Source: patient History of Present Illness HPI narrative: patient presents with left shoulder and elbow pain. patient slipped on ice yesterday causing her to fall down 5 stairs landing on her left side. patient denies any head injury denies any other injuris. Related Data Home Medications Medication Instructions Recorded Confirmed venlafaxine 75 mg PO DAILY 10/19/21 10/19/21 venlafaxine 150 mg PO DAILY 10/19/21 10/19/21 Allergies Allergy/AdvReac Type Severity Reaction Status Date / Time erythromycin base Allergy Unknown N/V, HIVES Verified 10/19/21 16:03 hydromorphone Allergy Unknown Hives / Verified 10/19/21 16:03 Red Face, TACHYCARDIA Review of Systems Review of Systems: CONSTITUTIONAL: Denies fever, chills, or sweats. EYES: Denies visual changes, redness, or discharge. ENT: Denies rhinorrhea, congestion, sore throat, or otalgia. CARDIOVASCULAR: Denies chest pain, palpitations, or edema. RESPIRATORY: Denies cough or dyspnea. GASTROINTESTINAL: Denies abdominal pain, nausea, vomiting, or diarrhea. GENITOURINARY: Denies dysuria or hematuria. SKIN: Denies rash or itching. MUSCULOSKELETAL: Denies back pain, joint pain, or myalgia. NEUROLOGIC: Denies headache, numbness, or weakness. PSYCHIATRIC: Denies anxiety or depression. Allergic/Immunologic: Comments: At time of signature, agree with nursing past medical, surgical, social and family history. There is no relevant family history pertinent to the presenting complaint [facility] Past Medical History Medical History (Updated 10/19/21 @ 16:41 by VIC Brasher) Depression Endometriosis Obesity Surgical History Surgical History (Updated 02/21/21 @ 08:38 by Arya Pillai MD) H/O laparoscopy H/O: hysterectomy History of endometrial ablation Social History Social History Smoking status: Never smoker Second hand tobacco smoke exposure: No Alcohol intake: current Alcohol use details: RARE Substance use: never Substance use type: does not use Gender identity (if verbalized by the patient): Female Spiritual care concerns: No Exam Narrative: GENERAL: Well-appearing, well-nourished, and in no acute distress. HEAD: Normocephalic, atraumatic. EYES: PERRLA and EOMI. ENT: Nares clear, no rhinorrhea or epistaxis. Mucous membranes moist. NECK: Supple. NO PARASPINAL TENDERNESS, NO VERTEBRAL TENDERNESS OR STEP OFFS. NO SWELLING. NORMAL ROM OF NECK. NORMAL UE STRENGTH AND SENSATION. CHEST: Clear to auscultation. No respiratory distress. HEART: Regular rate and rhythm. No murmur heard. Normal peripheral pulses. ABDOMEN: Soft, nontender, nondistended, normal active bowel sounds. EXTREMITIES: Normal range of motion. No edema.NO SWELLING, BRUISING, SKIN CHANGES. SKIN INTACT. NORMAL RADIAL PULSE. NO DEFORMITY OF SHOULDER. NO CLAVICLE TENDERNESS. NORMAL UE SENSATION AND STRENGTH. ROM EVALUATED - CAN RAISE UE ABOVE SHOULDER, CAN ABDUCT, ADDUCT, EXTERNALLY ROTATE AND CAN INTERNALLY ROTATE AND RAISE THUMB UP THE SPINE. NO AC JOINT TENDERNESS, CAN CROSS ARM HORIZONTALLY AND PLACE HAND ON OPPOSITE SHOULDER, NO WINGING OF THE SCAPULA. SUPRASPINATUS APPEARS NORMAL WITH ARMS STRAIGHT OUT AT 30 DEGREES, THUMB DOWN , CAN ABDUCT AGAINST RESISTANCE. elbow tenderness no deformity slight swelling no bruising no numbness or tingling. SKIN: Warm, dry, no rash. NEURO: No focal deficits. Alert and oriented x3. SPEECH IS CLEAR. NO LANGUAGE DEFICITS. CRANIAL NERVES: PUPILS EQUAL, ROUND, AND REACTIVE TO LIGHT. VISUAL STONE FULL. EXTRA-OCULAR MOVEMENTS INTACT. NO NYSTAGMUS NOTED. FACIAL SENSATION INTACT TO LIGHT TOUCH. FACIAL MOVEMENT FULL AND SYMMETRIC. PALATE MIDLINE. TONGUE MIDLINE, MOVING EQUALLY IN BOTH DIRECTIONS. UVULA IS MIDLINE. SHOULDER SHRUG EQUAL ON BOTH SIDES. BI
== END 2021-10-19 16:45 | disposition home or self-care (01) ==
PROVIDERS: Emergency Provider Nurse Practitioner Family
DX: S50.02XA Contusion of left elbow, initial encounter (principal); S40.012A Contusion of left shoulder, initial encounter; W00.1XXA Fall from stairs and steps due to ice and snow, initial encounter; F32.9 Major depressive disorder, single episode, unspecified; N80.9 Endometriosis, unspecified; E66.9 Obesity, unspecified; Z68.34 Body mass index [BMI] 34.0-34.9, adult
CPT/HCPCS: 73030; 73080; 99214; A4565; G0463

== ENCOUNTER 2021-11-06 13:33 | Outpatient (CLI) | payer OTHER, SELFPAY ==
--- NOTE | ~2021-11-06 | MR_ITS ---
EXAMINATION: MR shoulder LT wo con DATE: 11/06/2021 15:15 INDICATION: Left shoulder pain TECHNIQUE: Magnetic resonance imaging (MRI) of the left shoulder was performed without intravenous co ntrast. Sequences included axial PD-weighted FS FSE, coronal oblique PD-weighted FS FSE, coronal obli que T2-weighted FS FSE, sagittal PD-weighted FS FSE, and sagittal T1-weighted SE. COMPARISON: None. FINDINGS: Coracoacromial arch: The acromion undersurface is curved in morphology (type II). The coracoacromial ligament is normal. A cromioclavicular joint is normal. Rotator cuff: The supraspinatus, infraspinatus and teres minor tendons are normal. The subscapularis tendon is norm al. Normal rotator cuff muscle bulk and signal. Biceps tendon, glenoid labrum and glenohumeral cartilage: Long head of the biceps tendon is normal. Glenoid labrum is normal. Glenohumeral cartilage is normal. Fluid: Physiologic amount of fluid in the glenohumeral joint and biceps tendon sheath. No loose osteochondr al bodies. Small amount of fluid in the subacromial/subdeltoid bursa consistent with minimal bursitis . Bones: Normal marrow signal with no edema, fracture or abnormal marrow replacing process. IMPRESSION: 1. Minimal subacromial/subdeltoid bursitis. Otherwise normal left shoulder MRI. Reviewed, dictated and finalized at location A. RY MANAGER
--- NOTE | ~2021-11-06 | MR_ITS ---
EXAMINATION: MR elbow LT wo con DATE: 11/06/2021 15:15 INDICATION: Persistent posterior left elbow pain and limited range of motion with tingling extending to the fingers with extension post fall one month prior. TECHNIQUE: Magnetic resonance imaging (MRI) of the left elbow was performed without intravenous contr ast. Sequences included axial, sagittal and coronal PD-weighted FS FSE, PD-weighted FSE and PD-weight ed FLEX. COMPARISON: Left elbow radiographs dated 10/19/2021 FINDINGS: Osseous/other: Normal alignment. Normal marrow signal with no marrow edema, fracture, osteochondral lesion or patho logic marrow replacing process. Tendons: Triceps, biceps brachii and brachialis tendons are normal. Common flexor tendon wad is normal. The c ommon extensor tendon wad is normal. Ligaments: The medial and lateral collateral ligament complexes are normal. Cubital tunnel: There is mild edema at a normal variant anconeus epitrochlearis which extends across the cubital tunn el. Ulnar nerve appears mildly flattened at the cubital tunnel with slight relative expansion and inc reased signal proximal to the cubital tunnel. Fluid: Physiologic amount of fluid the elbow joint. IMPRESSION: 1. Mild increased signal at a normal variant anconeus epitrochlearis overlying the cubital tunnel whi ch given the provided history suggests a soft tissue contusion related to prior injury. Mild thickeni ng and increased signal of the ulnar nerve proximal to the cubital tunnel with appears relatively fla ttened and which given the provided clinical history history suspicious for secondary cubital tunnel syndrome resulting from the edema in the overlying muscle. Reviewed, dictated and finalized at location A. STRAR ASSISTANT IMPRESSION: 1. Mild increased signal at a normal variant anconeus epitrochlearis overlying the cubital tunnel which given the provided history suggests a soft tissue cont usion related to prior injury. Mild thickening and increased signal of the ulna r nerve proximal to the cubital tunnel with appears relatively flattened and wh ich given the provided clinical history history suspicious for secondary cubita l tunnel syndrome resulting from the edema in the overlying muscle.
== END 2021-11-06 13:34 | disposition home or self-care (01) ==
PROVIDERS: PCP Family Medicine; Visit Provider Family Medicine
DX: M25.512 Pain in left shoulder (principal); M25.522 Pain in left elbow; M54.10 Radiculopathy, site unspecified
CPT/HCPCS: 73221

== ENCOUNTER 2022-04-02 08:57 | Outpatient (CLI) | payer OTHER, SELFPAY ==
[2022-04-02 19:13] LABS: Hematocrit 49.3 % (37.0-47.0); Hemoglobin 16.2 g/dL (12.0-15.0); Mean Corpuscular HGB Conc 32.9 g/dl (32-36); Mean Corpuscular Hemoglobin 28.6 pg (26-34); Mean Corpuscular Volume 86.9 fl (80-100); Mean Platelet Volume 10.1 fl (7.4-10.4); Platelet Count Result 351 k/mm3 (150-375); Red Blood Count 5.67 M/mm3 (4.2-5.4); Red Cell Distribution Width 12.3 % (11.5-14.5); White Blood Count 8.8 K/mm3 (4.5-10.0)
[2022-04-02 19:23] LABS: Alanine Aminotransferase 29 U/L (6-35); Albumin Level 4.9 g/dL (3.5-5.1); Alkaline Phosphatase 79 U/L (38-126); Anion Gap 10 mmol/L (8-16); Aspartate Amino Transferase 72 U/L (14-36); Bilirubin,Total 0.5 mg/dL (0.2-1.3); Blood Urea Nitrogen 12 mg/dL (7-17); Calcium 9.1 mg/dL (8.4-10.2); Carbon Dioxide 27 mmol/L (22-30); Chloride 102 mmol/L (98-107); Cholesterol 267 mg/dL (0-200); Estimated Glomerular Filt Rate > 60; Glucose 84 mg/dL (65-110); HDL Direct 44 mg/dL; Potassium 4.2 mmol/L (3.4-5.0); Sodium 139 mmol/L (137-145); Triglycerides 117 mg/dL (<150)
[2022-04-02 19:35] LABS: LDL Cholesterol Direct 168 mg/dL
[2022-04-02 19:50] LABS: Hemoglobin A1C 4.9 % (<5.7)
== END 2022-04-02 08:58 | disposition home or self-care (01) ==
PROVIDERS: PCP Family Medicine; Visit Provider Family Medicine
DX: E66.9 Obesity, unspecified (principal); Z00.00 Encounter for general adult medical examination without abnormal findings
CPT/HCPCS: 36415; 80053; 80061; 83036; 84443; 85027

== ENCOUNTER 2022-06-30 09:53 | Outpatient (CLI) | payer OTHER, SELFPAY ==
[2022-06-30 19:27] LABS: Basophils Absolute Auto 0.1 K/mm3 (0.0-0.1); Basophils Percent Auto 1.2 % (0.2-1.2); Eosinophils Absolute Auto 0.4 K/mm3 (0-0.3); Eosinophils Percent Auto 4.1 % (0-4.4); Hemoglobin 15.4 g/dL (12.0-15.0); Immature Granulocyte Absolute 0.02 K/mm3 (0.00-0.031); Immature Granulocyte Percent A 0.2 % (0-0.5); Lymphocytes Absolute Auto 2.36 K/mm3 (0.9-3.2); Lymphocytes Percent Auto 26.4 % (18.3-44.2); Mean Corpuscular HGB Conc 32.8 g/dl (32-36); Mean Corpuscular Hemoglobin 28.9 pg (26-34); Mean Corpuscular Volume 88.2 fl (80-100); Mean Platelet Volume 9.8 fl (7.4-10.4); Monocytes Absolute Auto 0.7 K/mm3 (0.1-0.6); Monocytes Percent Auto 8.2 % (2.6-8.5); Neutrophils Absolute Auto 5.3 K/mm3 (1.3-6.7); Neutrophils Percent Auto 59.9 % (45.5-73.1); Platelet Count Result 372 k/mm3 (150-375); Red Blood Count 5.33 M/mm3 (4.2-5.4); Red Cell Distribution Width 12.2 % (11.5-14.5); White Blood Count 8.9 K/mm3 (4.5-10.0)
[2022-06-30 19:45] LABS: Alanine Aminotransferase 26 U/L (6-35); Albumin Level 4.6 g/dL (3.5-5.1); Alkaline Phosphatase 82 U/L (38-126); Aspartate Amino Transferase 42 U/L (14-36); Bilirubin,Total 0.4 mg/dL (0.2-1.3)
[2022-06-30 20:24] LABS: Hepatitis B Surface Antigen Negative (Negative)
[2022-06-30 20:30] LABS: HAV RESULT Negative (Negative); Hepatitis B Core IgM Result Negative (Negative)
[2022-06-30 20:42] LABS: Hepatitis C Virus Antibody Negative (Negative)
== END 2022-06-30 09:54 | disposition home or self-care (01) ==
PROVIDERS: PCP Family Medicine; Visit Provider Family Medicine
DX: R74.8 Abnormal levels of other serum enzymes (principal); D72.829 Elevated white blood cell count, unspecified
CPT/HCPCS: 36415; 80074; 80076; 85025

== ENCOUNTER 2023-05-27 09:13 | Emergency (ER) | payer OTHER, SELFPAY ==
[2023-05-27 09:18] VITALS: BP 119/78; PULSE 83; RESP 20; TEMP 36.4; O2SAT 96
--- NOTE | 2023-05-27 09:18 | ED.SKABFB ---
HPI - Skin/Abscess/Foreign Bdy General Stated complaint: cough/can't breathe Time Seen by Provider: 05/27/23 09:30 Source: patient, RN notes reviewed and old records reviewed Mode of arrival: ambulatory Limitations: no limitations Related Data Allergies Allergy/AdvReac Type Severity Reaction Status Date / Time erythromycin base Allergy Unknown N/V, HIVES Verified 07/16/22 11:16 hydromorphone Allergy Unknown Hives / Verified 07/16/22 11:16 Red Face, TACHYCARDIA PMFSH Past Medical History Medical History (Updated 09/03/22 @ 14:13 by Miller Luo MD) Depression Endometriosis Left elbow pain Left shoulder pain Obesity Postoperative pain Radiculopathy Severe pain Unable to move extremities voluntarily Surgical History Surgical History (Updated 04/02/22 @ 07:21 by Miller Luo MD) H/O laparoscopy H/O: hysterectomy (~2019) Dr. Sarthak Tijerina History of dilation and curettage (~2020) Dr. Sarthak Tijerina History of endometrial ablation Hx of cholecystectomy (~2017) Dr. Dorantes Family History Family History Other Asthma Depression Family history of colitis Family history of diabetes mellitus Family history of ulcerative colitis Social History Social History (Updated 07/16/22 @ 11:39 by Laine Joe MA) Smoking status: Never smoker Second hand tobacco smoke exposure: No Alcohol intake: never Substance use: current Substance use type: marijuana Lack of Transportation: No Lack of Food: Sometimes True Current Housing: I Have Housing Concerned About Future Housing: No Difficulty Paying Gas/Electric Bills: YES Difficulty Paying for Meds: No Currently Unemployed: No Education: High School Diploma/GED Difficulty w/ Childcare or Family Care: No Living arrangements: with family Occupation/Education: occupation Additional occupation/education comments: Homemaker Gender identity (if verbalized by the patient): Female Spiritual care concerns: No Discharge Plan Discharge Prescriptions: No Action hydrocodone-acetaminophen 5-325 mg tablet 1 tablet PO Q8H PRN (Reason: pain) Qty: 20 0RF topiramate 25 mg tablet 25 mg PO DAILY Qty: 90 1RF Ozempic 0.25 mg or 0.5 mg(2 mg/1.5 mL) pen injector 0.25 mg subcut WEEKLY Qty: 3 0RF Rx Instructions: Start 0.25mg SC qwk x 4 weeks, then increase to 0.5mg SC qwk x 4 weeks hydroxyzine HCl 50 mg tablet 50 mg PO TID PRN (Reason: insomnia and anxiety) Qty: 90 0RF venlafaxine 150 mg capsule,extended release 24hr 150 mg PO DAILY Qty: 90 1RF Follow-up/Referrals: Miller Luo MD [Primary Care Provider] -
--- NOTE | 2023-05-27 09:36 | ED.URI ---
HPI - URI/Sore Throat General Chief Complaint: Upper Respiratory Infection Stated Complaint: cough/can't breathe Time Seen by Provider: 05/27/23 09:30 Source: patient, RN notes reviewed and old records reviewed Mode of arrival: ambulatory Limitations: no limitations History of Present Illness HPI Narrative: 32 year old female who presents to express care with complaints of cough ,shortness of breath and diarrhea for the past 3 days. Patient has been eating and drinking with no complaints of nausea or vomiting, has been coughing up some phlegm at times. Patient reports that she has taken some Tylenol and Ibuprofen and did have a few doses of Mucinex when she first had symptoms. Patient denies any sore throat, ear pain, no fevers, no noted wheezing but states she is a little short of breath at times with activity. Patient is able to speak in full sentences, no retractions, respirations even and with no tachypnea, SO2 96% on room air. Patient reports that she has been COVID vaccinated and did have flu shot last year. MD elicited complaint: cough, rhinorrhea and nasal congestion Onset (ago): day(s) (3) Description of mucous: clear Able to tolerate fluids by mouth: Yes Exacerbating factors: exertion Treatments prior to arrival: acetaminophen, ibuprofen and other (Mucinex) Related Data Allergies Allergy/AdvReac Type Severity Reaction Status Date / Time erythromycin base Allergy Unknown N/V, HIVES Verified 05/27/23 09:34 hydromorphone Allergy Unknown Hives / Verified 05/27/23 09:34 Red Face, TACHYCARDIA Review of Systems Review of Systems: CONSTITUTIONAL: Denies malaise, chills, sweats, or fever. EYES: Denies visual changes, redness, or discharge. ENT: Reports rhinorrhea, congestion, sinus pain,no otalgia and sore throat. CARDIOVASCULAR: Denies chest pain, palpitations, or edema. RESPIRATORY: Reports cough.? States dyspnea with exertion. GASTROINTESTINAL: Denies abdominal pain, nausea, vomiting, diarrhea SKIN: Denies rash or itching. MUSCULOSKELETAL: Denies myalgia. NEUROLOGIC: Denies headache. All systems reviewed & are unremarkable except as noted in HPI and below PMFSH Past Medical History Medical History (Updated 05/27/23 @ 09:48 by Charley Gan NP) Depression Endometriosis Left elbow pain Left shoulder pain Obesity Postoperative pain Radiculopathy Severe pain Unable to move extremities voluntarily Surgical History Surgical History (Updated 04/02/22 @ 07:21 by Miller Luo MD) H/O laparoscopy H/O: hysterectomy (~2019) Dr. Sarthak Tijerina History of dilation and curettage (~2020) Dr. Sarthak Tijerina History of endometrial ablation Hx of cholecystectomy (~2017) Dr. Dorantes Family History Family History Other Asthma Depression Family history of colitis Family history of diabetes mellitus Family history of ulcerative colitis Social History Social History (Updated 07/16/22 @ 11:39 by Laine Joe MA) Smoking status: Never smoker Second hand tobacco smoke exposure: No Alcohol intake: never Substance use: current Substance use type: marijuana Lack of Transportation: No Lack of Food: Sometimes True Current Housing: I Have Housing Concerned About Future Housing: No Difficulty Paying Gas/Electric Bills: YES Difficulty Paying for Meds: No Currently Unemployed: No Education: High School Diploma/GED Difficulty w/ Childcare or Family Care: No Living arrangements: with family Occupation/Education: occupation Additional occupation/education comments: Homemaker Gender identity (if verbalized by the patient): Female Spiritual care concerns: No Comments At time of signature, agree with nursing past medical, surgical, social and family history. There is no relevant family history pertinent to the presenting complaint Exam Narrative: GENERAL: Well-appearing, well-nourished, and in n
== END 2023-05-27 10:20 | disposition home or self-care (01) ==
PROVIDERS: Emergency Provider Registered Nurse; PCP Family Medicine
DX: J06.9 Acute upper respiratory infection, unspecified (principal); R05.1 Acute cough
CPT/HCPCS: 99213; G0463

== ENCOUNTER 2023-09-07 10:02 | Outpatient (CLI) | payer OTHER, SELFPAY ==
[2023-09-07 18:57] LABS: Alanine Aminotransferase 32 U/L (6-35); Albumin Level 4.8 g/dL (3.5-5.1); Alkaline Phosphatase 90 U/L (38-126); Anion Gap 9 mmol/L (8-16); Aspartate Amino Transferase 54 U/L (14-36); Bilirubin,Total 0.5 mg/dL (0.2-1.3); Blood Urea Nitrogen 8 mg/dL (7-17); Calcium 9.6 mg/dL (8.4-10.2); Carbon Dioxide 29 mmol/L (22-30); Chloride 103 mmol/L (98-107); Cholesterol 282 mg/dL (0-200); Estimated Glomerular Filt Rate > 60; Glucose 84 mg/dL (65-110); HDL Direct 45 mg/dL; Magnesium 2.3 mg/dL (1.6-2.3); Sodium 141 mmol/L (137-145); Triglycerides 147 mg/dL (<150)
[2023-09-07 19:05] LABS: LDL Cholesterol Direct 177 mg/dL
[2023-09-07 19:58] LABS: Free T4 Free Thyroxine 0.91 ng/mL (0.78-2.19)
[2023-09-07 20:22] LABS: Hematocrit 50.4 % (37.0-47.0); Hemoglobin 16.3 g/dL (12.0-15.0); Mean Corpuscular HGB Conc 32.3 g/dl (32-36); Mean Corpuscular Hemoglobin 28.4 pg (26-34); Mean Platelet Volume 10.1 fl (7.4-10.4); Platelet Count Result 371 k/mm3 (150-375); Red Blood Count 5.73 M/mm3 (4.2-5.4); Red Cell Distribution Width 11.9 % (11.5-14.5); White Blood Count 8.5 K/mm3 (4.5-10.0)
[2023-09-07 21:24] LABS: Hemoglobin A1C 5.1 % (<5.7)
[2023-09-09 20:47] LABS: Insulin Level Total 16.8 uIU/mL (<=18.4)
[2023-09-16 22:46] LABS: Free Insulin 13.3 uIU/mL (1.5-14.9)
== END 2023-09-07 10:03 | disposition home or self-care (01) ==
PROVIDERS: PCP Nurse Practitioner Adult Health; Visit Provider Nurse Practitioner Adult Health
DX: R63.2 Polyphagia (principal); Z13.9 Encounter for screening, unspecified; E66.9 Obesity, unspecified
CPT/HCPCS: 36415; 80053; 80061; 83036; 83525; 83527; 83735; 84439; 84443; 85027

== ENCOUNTER 2023-09-21 11:28 | Outpatient (CLI) | payer OTHER, SELFPAY ==
[2023-09-21 19:28] LABS: Hematocrit 48.5 % (37.0-47.0); Hemoglobin 15.7 g/dL (12.0-15.0); Mean Corpuscular HGB Conc 32.4 g/dl (32-36); Mean Corpuscular Hemoglobin 28.3 pg (26-34); Mean Corpuscular Volume 87.4 fl (80-100); Mean Platelet Volume 10.2 fl (7.4-10.4); Platelet Count Result 337 k/mm3 (150-375); Red Blood Count 5.55 M/mm3 (4.2-5.4); White Blood Count 8.2 K/mm3 (4.5-10.0)
== END 2023-09-21 11:29 | disposition home or self-care (01) ==
LOC: ANHBWCLAB 11:29
PROVIDERS: PCP Nurse Practitioner Adult Health; Visit Provider Nurse Practitioner Adult Health
DX: D75.1 Secondary polycythemia (principal)
CPT/HCPCS: 36415; 85027

== ENCOUNTER 2023-11-24 09:01 | Outpatient (CLI) | payer OTHER, SELFPAY ==
[2023-11-24 09:25] LABS: Basophils Absolute Auto 0.1 K/mm3 (0.0-0.1); Basophils Percent Auto 1.4 % (0.2-1.2); Eosinophils Absolute Auto 0.2 K/mm3 (0-0.3); Eosinophils Percent Auto 2.5 % (0-4.4); Hematocrit 45.6 % (37.0-47.0); Hemoglobin 15.6 g/dL (12.0-15.0); Immature Granulocyte Absolute 0.01 K/mm3 (0.00-0.031); Immature Granulocyte Percent A 0.1 % (0-0.5); Lymphocytes Absolute Auto 2.45 K/mm3 (0.9-3.2); Lymphocytes Percent Auto 30.9 % (18.3-44.2); Mean Corpuscular HGB Conc 34.2 g/dl (32-36); Mean Corpuscular Volume 84.8 fl (80-100); Mean Platelet Volume 9.8 fl (7.4-10.4); Monocytes Absolute Auto 0.7 K/mm3 (0.1-0.6); Monocytes Percent Auto 8.7 % (2.6-8.5); Neutrophils Absolute Auto 4.5 K/mm3 (1.3-6.7); Neutrophils Percent Auto 56.4 % (45.5-73.1); Platelet Count Result 323 k/mm3 (150-375); Red Blood Count 5.38 M/mm3 (4.2-5.4); Red Cell Distribution Width 11.9 % (11.5-14.5); White Blood Count 7.9 K/mm3 (4.5-10.0)
[2023-11-24 09:53] LABS: Alanine Aminotransferase 26 U/L (6-35); Albumin Level 4.4 g/dL (3.5-5.1); Alkaline Phosphatase 73 U/L (38-126); Anion Gap 5 mmol/L (4-12); Aspartate Amino Transferase 24 U/L (14-36); Bilirubin,Total 0.5 mg/dL (0.2-1.3); Blood Urea Nitrogen 11 mg/dL (7-17); Calcium 9.5 mg/dL (8.4-10.2); Carbon Dioxide 28 mmol/L (22-30); Chloride 107 mmol/L (98-107); Estimated Glomerular Filt Rate > 60; Glucose 96 mg/dL (65-110); Potassium 4.4 mmol/L (3.4-5.0); Sodium 140 mmol/L (137-145)
[2023-11-27 11:43] LABS: Erythropoietin (EPO) 5.4 mIU/mL (2.6-18.5)
== END 2023-11-24 09:02 | disposition home or self-care (01) ==
LOC: ANHLAB 09:04
PROVIDERS: Nurse Practitioner Family; PCP Nurse Practitioner Adult Health; Visit Provider Internal Medicine Hematology & Oncology
DX: D45 Polycythemia vera (principal)
CPT/HCPCS: 36415; 80053; 82668; 85025

== ENCOUNTER 2023-12-16 08:31 | Outpatient (CLI) | payer OTHER, SELFPAY ==
[2023-12-16 19:02] LABS: Hematocrit 48.7 % (37.0-47.0); Hemoglobin 16.2 g/dL (12.0-15.0); Mean Corpuscular HGB Conc 33.3 g/dl (32-36); Mean Corpuscular Hemoglobin 28.9 pg (26-34); Mean Corpuscular Volume 86.8 fl (80-100); Mean Platelet Volume 10.4 fl (7.4-10.4); Platelet Count Result 351 k/mm3 (150-375); Red Blood Count 5.61 M/mm3 (4.2-5.4); Red Cell Distribution Width 12.3 % (11.5-14.5); White Blood Count 8.8 K/mm3 (4.5-10.0)
== END 2023-12-16 08:32 | disposition home or self-care (01) ==
LOC: ANHBWCLAB 08:32
PROVIDERS: PCP Nurse Practitioner Adult Health; Visit Provider Nurse Practitioner Adult Health
DX: D75.1 Secondary polycythemia (principal)
CPT/HCPCS: 36415; 85027

== ENCOUNTER 2024-04-06 13:21 | Outpatient (CLI) | payer OTHER, SELFPAY ==
[2024-04-06 13:33] LABS: Basophils Absolute Auto 0.1 K/mm3 (0.0-0.1); Basophils Percent Auto 1.5 % (0.2-1.2); Eosinophils Absolute Auto 0.2 K/mm3 (0-0.3); Hematocrit 43.5 % (37.0-47.0); Hemoglobin 15.1 g/dL (12.0-15.0); Immature Granulocyte Absolute 0.03 K/mm3 (0.00-0.031); Immature Granulocyte Percent A 0.3 % (0-0.5); Lymphocytes Absolute Auto 2.58 K/mm3 (0.9-3.2); Lymphocytes Percent Auto 27.5 % (18.3-44.2); Mean Corpuscular HGB Conc 34.7 g/dl (32-36); Mean Corpuscular Hemoglobin 29.3 pg (26-34); Mean Corpuscular Volume 84.3 fl (80-100); Mean Platelet Volume 9.5 fl (7.4-10.4); Monocytes Absolute Auto 0.7 K/mm3 (0.1-0.6); Neutrophils Absolute Auto 5.8 K/mm3 (1.3-6.7); Neutrophils Percent Auto 61.7 % (45.5-73.1); Platelet Count Result 341 k/mm3 (150-375); Red Blood Count 5.16 M/mm3 (4.2-5.4); Red Cell Distribution Width 11.6 % (11.5-14.5); White Blood Count 9.4 K/mm3 (4.5-10.0)
== END 2024-04-06 13:22 | disposition home or self-care (01) ==
LOC: ANHLAB 13:23
PROVIDERS: Nurse Practitioner Family; PCP Nurse Practitioner Adult Health; Visit Provider Internal Medicine Hematology & Oncology
DX: D75.1 Secondary polycythemia (principal)
CPT/HCPCS: 36415; 85025

== ENCOUNTER 2024-09-27 11:28 | Outpatient (CLI) | payer OTHER, SELFPAY ==
--- OUTSIDE RECORDS SUMMARY | 2024-09-27 12:47 | XMS_ITS | Referral Summary ---
Author Organization [facility] [address] [place] [address] Address [address] [place] [address] Care Team Providers Care Field Trainer Name Role Phone Arya Pickering MD Primary Care Provider [phone] Allergies Active Allergy Reactions Criticality Noted Date Comments Azithromycin Other (See comments) Low 08/26/2020 Codeine Nausea only,Vomiting Reaction: Nausea, Vomiting, , Erythromycin Hydromorphone Palpitations,Other ( See comments),Hallucinations Medium 08/26/2020 Reaction: racing heart, seats, high blood, , Medications venlafaxine XR (EFFEXOR-XR) 150 mg 24 hr capsule 04/29/2021 Ac tive Active Problems Problem Noted Date Diagnosed Date Chest pain 07/03/2021 Pre-operative clearance 07/03/2021 Calculus of gallbladder 07/14/2016 Overview (12/03/2016): Cholelithiasis Depression 06/01/2014 Overview (12/04/2016): Depression Immunizations Name Administration Dates Next Due Influenza LAIV (Nasal) 08/30/2006 TD Preservative Free 08/30/2006 Social History Tobacco Use Types Packs/Day Years Used Date Smoking Tobacco: Never Smokeless Tobacco: Never Alcohol Use Standard Drinks/Week Comments No 0 (1 standard drink = 0.6 oz pur e alcohol) AUDIT-C Answer Date Recorded Q1: How often do you have a drink containing alc ohol? 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 Gender Identity Not on file Sexual Orientation Not on file Last Filed Vital Signs Vital Sign Reading Time Taken Comments Blood Pressure 120/76 07/03/2021 4:21 PM CDT Pulse 84 07/03/2021 4:21 PM CDT Temperature - - Respiratory Rate - - Oxygen Saturation 98% 07/03/2021 4:21 PM CDT Inhaled Oxygen Concentration - - Weight 89.8 kg (198 lb) 07/03/2021 4:21 PM CDT Height 160 cm (5' 3 ) 07/03/2021 4:21 PM CDT Body Mass Index 35.07 07/03/2021 4:21 PM CDT Plan of Treatment Not on file Insurance Care Teams Field Trainer Relationship Specialty Start Date End Date Arya Pickering MD [address] [address] PCP - General Obstetrics and Gynecology 07/02/21
--- OUTSIDE RECORDS SUMMARY | 2024-09-27 12:47 | XMS_ITS | Clinical Summary ---
Author Organization [facility] Address [address] [place] [address] Phone Care Team Providers Care Lime Boiler Name Role Phone Provider, None Primary Care Provider Unavailabl e Allergies Active Allergy Reactions Criticality Noted Date Comments Azithromycin Other (see Comments) 08/26/2020 Hydromorphone Hallucinations 08/26/2020 Medications No known medications Social History Tobacco Use Types Packs/Day Years Used Date Smoking Tobacco: Never Smokeless Tobacco: Never Alcohol Use Standard Drinks/Week Comments Not Currently 0 (1 standard drink = 0.6 oz pur e alcohol) Occasionally Comments No Sex and Gender Information Value Date Recorded Sex Assigned at Not on file Legal Sex Female 8:08 AM CDT Gender Identity Not on file Sexual Orientation Not on file Last Filed Vital Signs Vital Sign Reading Time Taken Comments Blood Pressure 150/87 08/26/2020 10:40 PM POSTER Pulse 100 08/26/2020 10:40 PM POSTER Temperature 36.8 ??C (98.3 ??F) 08/26/2020 8:24 PM CS T Respiratory Rate 18 08/26/2020 10:40 PM POSTER Oxygen Saturation 98% 08/26/2020 10:40 PM POSTER Inhaled Oxygen Concentration - - Weight 78 kg (172 lb) 08/26/2020 8:24 PM POSTER Height 160 cm (5' 3 ) 08/26/2020 8:24 PM POSTER Body Mass Index 30.47 08/26/2020 8:24 PM POSTER Plan of Treatment Health Maintenance Due Date Last Done Comments Hepatitis C Virus (HCV) Screening 1992 Influenza Immunization (#1) 2024 07/12/2017 SARS-COV-2 Immunization (3 - 2024-25 season) 2024 09/03/2021, 08/04/2021 Respiratory Syncytial Virus (RSV) Immunization (Adult) (1 - 1-dose 75+ series) 12/30/2067 Hepatitis B Immunization Completed 994, 08/11/1993, 07/09/1993 DTaP/Tdap/Td Immunization Discontinued 2016, 04/17/2008, 06/07/1998, Additional history exists TdaP Immunization Completed 07/12/2017, 04/17/2008 Meningococcal Immunization (ACWY) Aged Out No longer eligible based on patient's age to complete this topic Pneumococcal Immunization Combined Aged Out No longer eligible based on patient's age to complete this topic Rotavirus Immunization Aged Out No lo nger eligible based on patient's age to complete this topic Insurance MED[place]ID [place] Care Teams Lime Boiler Relationship Specialty Start Date End Date Provider, None [place] PCP - General 08/26/20
--- OUTSIDE RECORDS SUMMARY | 2024-09-27 12:47 | XMS_ITS | Clinical Summary ---
Author Organization [facility] [address] [place] [address] Address [address] [place] [address] Care Team Providers Care Network Architect Name Role Phone Arya Pickering MD Primary Care Provider [phone] Allergies Active Allergy Reactions Criticality Noted Date [...] LAIV (Nasal) 08/30/2006 TD Preservative Free 08/30/2006 Surgical History Surgery Date Site/Laterality Comments OTHER SURGICAL HISTORY Laproscopic surgery for ovarian cyst OTHER SURGICAL HISTORY Removal of cyst in jaw TYMPANOSTOMY TUBE PLACEMENT Bilateral Tubes in ears LAPAROSCOPIC CHOLECYSTECTOMY Laparoscopic Cholecystectomy Medical History Medical History Date Comments Hx Other Medical 08/2009 Ovarian cyst; C omments: LEXY 06/01/2014 - Hx Other Medical 1999 Henoch-Schonlei n Purpura; Comments: WM 09/07/2014 - Hx Other Medical 07/14/2016 Cholelithiasis; Comments: GDS 07/14/2016 - Anxiety and depression Family History Medical History Relation Name Comments Asthma Brother Other Brother Pericarditis; Other Father ulcer colonitis ; Ovarian cancer Mother Cancer, ovari an; Other Sister cerebral palsey ; Relation Name Status Comments Brother Alive Father Alive Mother Alive Sister Alive Social History Tobacco Use Types Packs/Day Years [...] on file 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
--- OUTSIDE RECORDS SUMMARY | 2024-09-27 12:47 | XMS_ITS | Clinical Summary ---
Author Organization [facility] Tavo Irizarry Address [address] [place] [address] Care Team Providers Care Business Analytics Director Name Role Phone Unavailable Primary Care Provider Unavailabl e Allergies Active Allergy Reactions Criticality Noted Date Comments Erythromycin Hives High 11/16/2023 Hydromorphone Hallucination,Hives, Palp itations High 08/26/2020 Reaction: racing heart, seats, high blood, , Medications omeprazole (PriLOSEC) 40 mg Capsule, Delayed Release(E.C.) Take 40 mg by mouth daily. 11/10/2023 Active aspirin (ECOTRIN EC) 81 mg Tablet, Delayed Release (E.C.) Take 81 mg by mouth daily. Active ondansetron (ZOFRAN) 4 mg Tablet Take 4 mg by mouth every 8 hours as needed for Nausea/Emes is. Active FLUoxetine (PROzac) 20 mg capsule Take 20 mg by mouth daily. Active buPROPion HCL (WELLBUTRIN XL) 150 mg Extended Release 24 hour tablet Take 150 mg by mouth daily in the morning. Active Active Problems No known active problems Encounters Date Type Department Care Team Description 09/26/2024 External Device Data ST[facility] ABSTRACTION Provider, Abstract 09/20/2024 External Device Data [facility] ABSTRACTION Provider, Abstract 09/20/2024 External Device Data [facility] ABSTRACTION Provider, Abstract from Last 3 Months Family History Medical History Relation Name Comments No Known Problems Brother No Known Problems Child 1 No Known Problems Child 2 No Known Problems Child 3 Heart Disease Father Cancer Mother No Known Problems Sister Relation Name Status Comments Brother Alive Child 1 Alive Child 2 Alive Child 3 Alive Father Alive Mother Alive Sister Alive Social History Tobacco Use Types Packs/Day Years Used Date Smoking Tobacco: Never Smokeless Tobacco: Never Tobacco Cessation:Counseling Given: Not Answered Alcohol Use Standard Drinks/Week Comments Yes 0 (1 standard drink = 0.6 oz pur e alcohol) Socially Comments Unknown Sex and Gender Information Value Date Recorded Sex Assigned at Not on file Legal Sex Female 11:25 AM CDT Gender Identity Not on file Sexual Orientation Not on file Last Filed Vital Signs Vital Sign Reading Time Taken Comments Blood Pressure 133/81 04/06/2024 1:35 PM CDT Pulse 65 04/06/2024 1:35 PM CDT Temperature 36.1 ??C (97 ??F) 04/06/2024 1:35 PM CDT Respiratory Rate 16 04/06/2024 1:35 PM CDT Oxygen Saturation 98% 04/06/2024 1:35 PM CDT Inhaled Oxygen Concentration - - Weight 84.8 kg (187 lb) 04/06/2024 1:35 PM CDT Height 160 cm (5' 3 ) 11/16/2023 1:36 PM CDT Body Mass Index 33.13 11/16/2023 1:36 PM CDT Plan of Treatment Upcoming Encounters Date Type Department Care Team (Late st Contact Info) Description 10/12/2024 10:15 AM EDITOR TRADE JOURNAL Office Visit [facility] Oncology and Hematology - [place] [address] [facility] [address] [place] [address] Miguel Brown MD [address] [place] [address] Health Maintenance Due Date Last Done Comments DTAP/TDAP/TD VACCINES (2 - Tdap) 08/31/2006 08/30/19 07 HEPATITIS B VACCINES (1 of 3 - 19+ 3-dose series) 12/30/2011 CERVICAL CANCER SCREENING 2022 INFLUENZA VACCINE (#1) 2024 08/30/2006 HPV VACCINES Aged Out No longer eligi ble based on patient's age to complete this topic Insurance [place]
--- OUTSIDE RECORDS SUMMARY | 2024-09-27 12:47 | XMS_ITS | Encounter Summary ---
Author Organization [facility] Address [address] [place] [address] Care Team Providers Care Nursing Faculty Name Role Phone Unavailable Primary Care Provider Unavailabl e Encounter Details Date Type Department Care Team (Late st Contact Info) Description 09/26/2024 External Device Data [facility] ABSTRACTION Provider, Abstract NO ADDRESS ON FILE Social History Tobacco Use Types Packs/Day Years Used Date Smoking Tobacco: Never Smokeless Tobacco: Never Alcohol Use Standard Drinks/Week Comments Yes 0 (1 standard drink = 0.6 oz pur e alcohol) Socially Comments Unknown Sex and Gender Information Value Date Recorded Sex Assigned at Not on file Legal Sex Female 11:25 AM CDT Gender Identity Not on file Sexual Orientation Not on file documented as of this encounter Plan of Treatment Upcoming Encounters Date Type Department Care Team (Late st Contact Info) Description 10/12/2024 10:15 AM PUMP AND STILL OPERATOR Office Visit [facility] Oncology and H[facility]ology - [place] [address] [place] [address] [facility] [address] [place] [address] Miguel Brown MD [address] [facility] [facility] [address] [place] [address] documented as of this encounter Visit Diagnoses Not on filedocumented in this encounter
[2024-09-27 19:30] LABS: Basophils Absolute Auto 0.1 K/mm3 (0.0-0.1); Basophils Percent Auto 1.4 % (0.2-1.2); Eosinophils Absolute Auto 0.1 K/mm3 (0-0.3); Eosinophils Percent Auto 1.7 % (0-4.4); Hematocrit 47.1 % (37.0-47.0); Immature Granulocyte Absolute 0.01 K/mm3 (0.00-0.031); Immature Granulocyte Percent A 0.1 % (0-0.5); Mean Corpuscular Hemoglobin 29.5 pg (26-34); Mean Corpuscular Volume 86.7 fl (80-100); Mean Platelet Volume 10.2 fl (7.4-10.4); Monocytes Absolute Auto 0.5 K/mm3 (0.1-0.6); Neutrophils Absolute Auto 3.9 K/mm3 (1.3-6.7); Neutrophils Percent Auto 55.8 % (45.5-73.1); Platelet Count Result 343 k/mm3 (150-375); Red Blood Count 5.43 M/mm3 (4.2-5.4); Red Cell Distribution Width 11.9 % (11.5-14.5); White Blood Count 7.1 K/mm3 (4.5-10.0)
[2024-09-27 19:56] LABS: Alanine Aminotransferase 46 U/L (6-35); Albumin Level 4.7 g/dL (3.5-5.1); Alkaline Phosphatase 77 U/L (38-126); Anion Gap 10 mmol/L (4-12); Aspartate Amino Transferase 64 U/L (14-36); Bilirubin,Total 0.8 mg/dL (0.2-1.3); Blood Urea Nitrogen 12 mg/dL (7-17); Calcium 9.6 mg/dL (8.4-10.2); Carbon Dioxide 27 mmol/L (22-30); Chloride 103 mmol/L (98-107); Cholesterol 226 mg/dL (0-200); Estimated Glomerular Filt Rate > 60; Glucose 82 mg/dL (65-110); HDL Direct 51 mg/dL; Potassium 4.5 mmol/L (3.4-5.0); Sodium 140 mmol/L (137-145); Triglycerides 129 mg/dL (<150)
[2024-09-27 20:07] LABS: LDL Cholesterol Direct 144 mg/dL
== END 2024-09-27 11:29 | disposition home or self-care (01) ==
LOC: ANHBWCLAB 11:29
PROVIDERS: PCP Nurse Practitioner Adult Health; Visit Provider Nurse Practitioner Adult Health
DX: Z13.9 Encounter for screening, unspecified (principal)
CPT/HCPCS: 36415; 80053; 80061; 84443; 85025

== ENCOUNTER 2024-11-21 12:20 | Emergency (ER) | payer OTHER, SELFPAY ==
--- NOTE | ~2024-11-21 | XR_ITS ---
EXAMINATION: XR wrist RT min 3V DATE: 11/21/2024 13:09 INDICATION: Right wrist pain. Injury. TECHNIQUE: 4 views of right wrist were obtained. COMPARISON: None. FINDINGS: Alignment is normal. No fracture. 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 IMPRESSION: 1. No fracture. Reviewed, dictated and finalized at location A. IMPRESSION: 1. No fracture.
[2024-11-21 12:33] VITALS: BP 133/77; PULSE 78; RESP 18; TEMP 36.8; O2SAT 99
--- NOTE | 2024-11-21 13:30 | ED_ITS ---
HPI - General Adult General Chief complaint: Extremity Injury, Upper Stated complaint: Right Wrist Injury Source: patient Mode of arrival: ambulatory Limitations: no limitations History of Present Illness HPI narrative: Pt presents for evaluation of right wrist pain. Symptom onset two days ago. Her daughter was practicing her tumbling and pt attempted to redirect her by scooping her right hand beneath her. Since that time she has experienced constant pain with interval worsening. Pain without movement is rated 3/10 but increases to a severity that brings her to tears with certain movements. She has tried taking Tylenol for pain. She is right-hand dominant. She reports tingling in the 5th digit of the right hand. No loss of ROM. Related Data Allergies Allergy/AdvReac Type Severity Reaction Status Date / Time erythromycin base Allergy Unknown N/V, HIVES Verified 09/27/24 11:03 hydromorphone Allergy Unknown Hives / Verified 09/27/24 11:03 Red Face, TACHYCARDIA Review of Systems Review of Systems: CONSTITUTIONAL: Denies fever, chills, or sweats. EYES: Denies visual changes, redness, or discharge. ENT: Denies rhinorrhea, congestion, sore throat, or otalgia. CARDIOVASCULAR: Denies chest pain, palpitations, or edema. RESPIRATORY: Denies cough or dyspnea. GASTROINTESTINAL: Denies abdominal pain, nausea, vomiting, or diarrhea. GENITOURINARY: Denies dysuria or hematuria. SKIN: Denies rash or itching. MUSCULOSKELETAL: Reports right wrist pain. Denies other joint pain. NEUROLOGIC: Reports tingling in the 5th digit of the right hand. Denies headache, numbness, dizziness, or weakness. PSYCHIATRIC: Denies anxiety or depression. [facility] Past Medical History Medical History Unable to move extremities voluntarily Left elbow pain Radiculopathy Left shoulder pain Severe pain Obesity Postoperative pain Endometriosis Depression Surgical History Surgical History History of dilation and curettage (~2020) Dr. Sarthak Tijerina Hx of cholecystectomy (~2017) Dr. Dorantes H/O: hysterectomy (~2019) Dr. Sarthak Tijerina H/O laparoscopy History of endometrial ablation Family History Family History Other Asthma Depression Family history of colitis Family history of diabetes mellitus Family history of ulcerative colitis Social History Social History Smoking status: Never smoker Second hand tobacco smoke exposure: No Alcohol intake: never Substance use: current Substance use type: marijuana Lack of Transportation: No Lack of Food: Sometimes True Current Housing: I Have Housing Concerned About Future Housing: No Difficulty Paying Gas/Electric Bills: YES Difficulty Paying for Meds: No Currently Unemployed: YES Education: High School Diploma/GED Difficulty w/ Childcare or Family Care: No Living arrangements: with family Occupation/Education: occupation Additional occupation/education comments: Homemaker Gender identity (if verbalized by the patient): Female Spiritual care concerns: No Exam Narrative: GENERAL: Well-appearing, well-nourished, and in no acute distress. HEAD: Normocephalic, atraumatic. EYES: PERRLA and EOMI. ENT: Nares clear, no rhinorrhea or epistaxis. Mucous membranes moist. Oropharynx without tonsillar hypertrophy exudate or other lesions. Bilateral TMs pearly walsh nonbulging NECK: Supple. No adenopathy or masses. No carotid bruits or JVD CHEST: Clear to auscultation. No respiratory distress. No wheezes rales or rhonchi HEART: Regular rate and rhythm. No murmur heard. Normal peripheral pulses. ABDOMEN: Soft, nontender, nondistended, normal active bowel sounds. EXTREMITIES: Tenderness noted to lateral aspect of right wrist. No crepitus or deformity. Full range of motion of the right wrist but movement reproduces pain in the lateral aspect of the right wrist. 5/5 hand granite sandblaster apprentice strength bilaterally. SKIN: Warm, dry, no rash. NEURO: No focal deficits. Alert and oriented x3. PSYCH: Normal mood and affect. Course Course Emergency Course: This is a 33-year-old female who presented for evaluation of right wrist pain. X-ray negative for fracture. Exam consistent with sprain. Provided with Will wrap. Advised on RICE Therapy and use of NSAIDs for symptom management. Follow up with primary provider. Go to the ER for worsening symptoms. Pt in agreement with plan of care. Level of Care: Express Care Visit Vital Signs Vital signs: Vital Signs Temperature 36.8 C 11/21/24 12:33 Pulse Rate 78 11/21/24 12:33 Respiratory Rate 18 11/21/24 12:33 Blood Pressure 133/77 11/21/24 12:33 Pulse Oximetry 99 11/21/24 12:33 Oxygen Delivery Room Air 11/21/24 12:33 Temperature 36.8 C 11/21/24 12:33 Pulse Rate 78 11/21/24 12:33 Respiratory Rate 18 11/21/24 12:33 Blood Pressure 133/77 11/21/24 12:33 Pulse Oximetry 99 11/21/24 12:33 Oxygen Delivery Room Air 11/21/24 12:33 Medical Decision Making Vital Signs Vital Signs: Vital Signs Temperature 36.8 C 11/21/24 12:33 Pulse Rate 78 11/21/24 12:33 Respiratory Rate 18 11/21/24 12:33 Blood Pressure 133/77 11/21/24 12:33 Pulse Oximetry 99 11/21/24 12:33 Oxygen Delivery Room Air 11/21/24 12:33 Temperature 36.8 C 11/21/24 12:33 Pulse Rate 78 11/21/24 12:33 Respiratory Rate 18 11/21/24 12:33 Blood Pressure 133/77 11/21/24 12:33 Pulse Oximetry 99 11/21/24 12:33 Oxygen Delivery Room Air 11/21/24 12:33 Imaging Data Radiologist's impression: EXAMINATION: XR wrist RT min 3V DATE: 11/21/2024 13:09 INDICATION: Right wrist pain. Injury. TECHNIQUE: 4 views of right wrist were obtained. COMPARISON: None. FINDINGS: Alignment is normal. No fracture. 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 IMPRESSION: 1. No fracture. Discharge Plan Discharge Clinical Impression: Right wrist sprain Patient Disposition: Home, Self-Care Condition: Stable Instructions: Antibiotic Form, Wrist Sprain (ED) Additional Instructions: YOU MAY TAKE IBUPROFEN BY MOUTH OR APPLY VOLTAREN GEL TO THE WRIST BOTH OF THESE ARE SOLD OVER THE COUNTER Patient Language: Martiniquais Prescriptions: No Action bupropion HCl [Wellbutrin XL] 300 mg tablet extended release 24 hr 300 mg PO QAM Qty: 30 3RF omeprazole 40 mg capsule,delayed release(DR/EC) 40 mg PO DAILY Qty: 90 1RF fluoxetine 20 mg capsule 20 mg PO DAILY Qty: 30 1RF Follow-up/Referrals: Denise Lopez APRN [Primary Care Provider] - Time of Disposition: 13:27
--- OUTSIDE RECORDS SUMMARY | 2024-11-21 14:18 | XMS_ITS | Clinical Summary ---
Author Organization [facility] Address [address] [place] [address] Care Team Providers Care Supervisor Electronic Coils Name Role Phone Unavailable Primary Care Provider [...] Encounters Date Type Department Care Team Description 11/04/2024 External Device Data STL ABSTRACTION Provider, Abstract 11/03/2024 External Device Data STL ABSTRACTION Provider, Abstract 11/01/2024 External Device Data STL ABSTRACTION Provider, Abstract 10/17/2024 External Device Data STL ABSTRACTION Provider, Abstract 09/26/2024 External Device Data STL ABSTRACTION Provider, [...] 65 04/06/2024 1:35 PM CDT Temperature 36.1 C (97 F) 04/06/2024 1:35 PM CDT Respiratory Rate 16 04/06/2024 1:35 PM CDT Oxygen Saturation 98% 04/06/2024 1:35 PM CDT Inhaled Oxygen Concentration - - Weight 84.8 kg (187 lb) 04/06/2024 1:35 PM CDT Height 160 cm (5' 3 ) 11/16/2023 1:36 PM CDT Body Mass Index 33.13 11/16/2023 1:36 PM CDT Plan of Treatment Health Maintenance Due Date Last Done Comments DTAP/TDAP/TD VACCINES (2 - Tdap) 08/31/2006 08/30/19 07 HEPATITIS B VACCINES (1 of 3 - 19+ 3-dose series) 12/30/2011 PAP SMEAR 2013 CERVICAL CANCER SCREENING 2022 HPV/Cotest 2022 PAP SMEAR 2022 INFLUENZA VACCINE (#1) 2024 08/30/2006 HPV VACCINES Aged Out No longer eligi ble based on patient's age to complete this topic
--- OUTSIDE RECORDS SUMMARY | 2024-11-21 14:18 | XMS_ITS | Clinical Summary ---
Author Organization [facility] Address [address] [place] [address] Phone Care Team Providers Care Crystal Grower Name Role Phone Provider, None Primary Care [...] Comments Blood Pressure 150/87 08/26/2020 10:40 PM SLEEVE BOTTOM FELLER Pulse 100 08/26/2020 10:40 PM SLEEVE BOTTOM FELLER Temperature 36.8 C (98.3 F) 08/26/2020 8:24 PM SLEEVE BOTTOM FELLER Respiratory Rate 18 08/26/2020 10:40 PM SLEEVE BOTTOM FELLER Oxygen Saturation 98% 08/26/2020 10:40 PM SLEEVE BOTTOM FELLER Inhaled Oxygen Concentration - - Weight 78 kg (172 lb) 08/26/2020 8:24 PM SLEEVE BOTTOM FELLER Height 160 cm (5' 3 ) 08/26/2020 8:24 PM SLEEVE BOTTOM FELLER Body Mass Index 30.47 08/26/2020 8:24 PM SLEEVE BOTTOM FELLER Plan of Treatment Health Maintenance Due Date Last Done Comments Hepatitis C Virus (HCV) Screening 1992 Influenza Immunization (#1) 2024 07/12/2017, 0 10/19/2014 SARS-COV-2 Immunization ( season) 2024 09/03/2021, 08/04/2021 Respiratory Syncytial Virus [...] this topic Insurance [place]ID [place] Care Teams Crystal Grower Relationship Specialty Start Date End Date Provider, None MD PCP - General 08/26/20
--- OUTSIDE RECORDS SUMMARY | 2024-11-21 14:18 | XMS_ITS | Clinical Summary ---
Author Organization [facility] [address] [facility] lt Address [address] [place] [address] Care Team Providers Care Civil Geotechnical Engineer Name Role Phone Arya Pickering MD Primary Care Provider [phone] [phone] Allergies Active Allergy Reactions Criticality Noted Date Comments Azithromycin Other (See comments) Low 08/26/2020 Codeine Nausea only,Vomiting Reaction: Nausea, Vomiting, , Erythromycin Hydromorphone Palpitations,Other ( See comments),Hallucinations Medium 08/26/2020 Reaction: racing heart, seats, high blood, , Medications venlafaxine XR (EFFEXOR-XR) 150 mg 24 hr capsule 04/29/2021 Active omeprazole (PriLOSEC) 40 mg capsule Take 1 capsule (40 mg total) by mouth daily 11/10/2023 Active aspirin 81 mg enteric coated tablet Take 1 tablet (81 mg total) by mouth daily Active ondansetron (ZOFRAN) 4 mg tablet Take 1 tablet (4 mg total) by mouth every 8 (eight) hours as needed Active Active Problems Problem Noted Date Diagnosed Date Chest pain 07/03/2021 Pre-operative clearance 07/03/2021 Calculus of gallbladder 07/14/2016 Overview (12/03/2016): Cholelithiasis Depression 06/01/2014 Overview (12/04/2016): Depression Encounters Date Type Department Care Team Description 11/03/2024 11:00 AM FLASH DEVELOPER Office Visit [facility] Oncology [address] [place] [address] [address] [place] [address] Pedro Pavon MD Epistaxis (Primary Dx); Polycythemia, secondary 11/03/2024 10:30 AM FLASH DEVELOPER Lab [facility] at [facility] [address] [facility] [address] [place] [address] Polycythemia (Primary Dx) 11/02/2024 Telephone [facility] Oncology [address] [place] [address] [address] [place] [address] Pedro Pavon MD 10/19/2024 Orders Only [facility] Oncology [address] [place] [address] [facility] [address] [place] [address] Kayleigh Gonzalez CLT Polycythemia, secondary (Primary Dx) from Last 3 Months Immunizations Immunization Administration Dates Next Due DTaP 06/07/1998, 4,07/09/1993,05/02,02/25/1993 Hep B, Adolescent or Pediatric 03/31/1994,1992,07/09/1993 HiB 06/07/1998, 4,07/09/1993,05/02,02/25/1993 IPV 06/07/1998, 4,05/02/1993,02/25 Influenza LAIV (Nasal) 08/30/2006 Influenza, Quadrivalent, Spl it, Preservative Free, Intramuscular 06/10/2022 Influenza, Trivalent, IM (MDV) 10/19/2014 Influenza, Trivalent, Preser vative Free, Intramuscular 07/12/2017 MMR 06/07/1998,03/31/1996 Meningococcal C Conjugate 04/17/2008 TD Preservative Free 08/30/2006 Tdap 07/12/2017,04/17/2008 Varicella 01/27/1996 Surgical History Surgery Date Site/Laterality Comments OTHER [...] on file Legal Sex Female 7:54 PM FLASH DEVELOPER Gender Identity Not on file Sexual Orientation Not on file Obstetrics History Last Filed Vital Signs Vital Sign Reading Time Taken Comments Blood Pressure 118/73 11/03/2024 11:01 AM FLASH DEVELOPER Pulse 75 11/03/2024 11:01 AM FLASH DEVELOPER Temperature 36.5 C (97.7 F) 11/03/2024 11:01 AM FLASH DEVELOPER Respiratory Rate 20 11/03/2024 11:0 1 AM FLASH DEVELOPER Oxygen Saturation 99% 11/03/2024 11: 01 AM FLASH DEVELOPER Inhaled Oxygen Concentration - - Weight 81.6 kg (180 lb) 11/03/2024 11:0 1 AM FLASH DEVELOPER with shoes on Height 157.5 cm (5' 2 ) 11/03/2024 11:0 1 AM FLASH DEVELOPER with shoes on Body Mass Index 32.92 11/03/2024 11:01 AM FLASH DEVELOPER Plan of Treatment Health Maintenance Due Date Last Done Comments Cervical Cancer Screening 1992 Depression Screening 1992 Hepatitis C Screening 1992 Varicella Vaccines (2 of 2 - 2-dose childhood series) 09/27/2006 01/27/1996 Regular Well Visit/Exam 18-64 2010 Covid-19 Vaccine ( season) 2024 09/03/2021, 08/04/2021 Influenza Vaccine (#1) 2024 2, 07/12/2017, 10/19/2014, Additional history exists DTaP/Tdap/Td Vaccine (8 - Td or Tdap) 07/12/2027 07/12/2017, 04/17/2008, 08/30/2006, Additional history exists Hepatitis B Screening Completed 03/31/1994 , 08/11/1993, 07/09/1993 HPV Vaccines Aged Out No longer eligi ble based on patient's age to complete this topic Pneumococcal vaccine <65 Aged Out No longer eligible based on patient's age to complete this topic Procedures Procedure Name Priority Date/Time Associated Diagnosis Comments DIFFERENTIAL AUTO Routine 11/03/2024 10: 30 AM FLASH DEVELOPER Polycythemia CBC WITH AUTO DIFFERENTIAL Routine 11/03/2024 10:30 AM FLASH DEVELOPER Polycythemia from Last 3 Months Results * Differential, auto (11/03/2024 10:30 AM FLASH DEVELOPER) Neutrophil abs 3.1 1.5 - 6.5 K/cumm Comment:Testing performed by : [place], [address] Imm gran abs 0.0 0.0 - 0.1 K/cumm [facility] ([place]) Comment:Testing performed by : [place], [address] Lymphocyte abs 2.7 0.8 - 3.3 K/cumm [facility] ([place]) Comment:Testing performed by : [place], [address] Monocyte abs 0.4 0.2 - 0.8 K/cumm [facility] ([place]) Comment:Testing performed by : [place], [address] Eosinophil abs 0.2 0.0 - 0.5 K/cumm [facility] ([place]) Comment:Testing performed by : [place], [address] Basophil abs 0.1 0.0 - 0.1 K/cumm [facility] ([place]) Comment:Testing performed by : [place], [address] Neutrophil pct 48.5 % [facility] ([place]) Comment: Interpretive Data Percent cell count reference ranges are not reported, since discordance with absolute values may lead to misinterpretation of CBC data. Current Interpretive Data was last revised on 2017. Testing performed by: [facility], [place], [address] Imm gran pct 0.2 % [facility] ([place]) Comment: Interpretive Data Percent cell count reference ranges are not reported, since discordance with absolute values may lead to misinterpretation of CBC data. Current Interpretive Data was last revised on 2017. Testing performed by: [place], [address] Lymphocyte pct 41.5 % [facility] ([place]) Comment: Interpretive Data Percent cell count reference ranges are not reported, since discordance with absolute values may lead to misinterpretation of CBC data. Current Interpretive Data was last revised on 2017. Testing performed by: [place], [address] Monocyte pct 6.1 % [facility] ([place]) Comment: Interpretive Data Percent cell count reference ranges are not reported, since discordance with absolute values may lead to misinterpretation of CBC data. Current Interpretive Data was last revised on 2017. Testing performed by: [facility], [place], [address] Eosinophil pct 2.4 % [facility] ([place]) Comment: Interpretive Data Percent cell count reference ranges are not reported, since discordance with absolute values may lead to misinterpretation of CBC data. Current Interpretive Data was last revised on 2017. Testing performed by: [place], [address] Basophil pct 1.3 % [facility] ([place]) Comment: Interpretive Data Percent cell count reference ranges are not reported, since discordance with absolute values may lead to misinterpretation of CBC data. Current Interpretive Data was last revised on 2017. Testing performed by: [facility], [place], [address] Blood 11/03/2024 10:3 0 AM FLASH DEVELOPER 11/03/2024 1:38 PM FLASH DEVELOPER us Pedro Pavon MD LAB BLOOD ORDERABLES Final Re sult [facility] ([place]) [address] [place] [address] [place] [address] * (ABNORMAL) CBC with auto differential (11/03/2024 10:30 AM FLASH DEVELOPER) WBC 6.4 3.8 - 9.9 K/cumm Comment:Testing performed by : [place], [address] Hgb 16.0(H) 11.9 - 15.5 g/dL [facility] ([place]) Comment:Testing performed by : [place], [address] Hct 46.8(H) 35.6 - 45.5 % [facility] ([place]) Comment:Testing performed by : [place], [address] Plt 354 150 - 400 K/cumm [facility] ([place]) Comment:Testing performed by : [place], [address] MPV 10.5 9.1 - 12.3 fL [facility] ([place]) Comment:Testing performed by : [place], [address] RBC 5.42(H) 3.90 - 5.20 M/cumm [facility] ([place]) Comment:Testing performed by : [place], [address] MCV 86.3 81.3 - 96.4 fL [facility] ([place]) Comment:Testing performed by : [place], [address] MCH 29.5 27.1 - 33.3 pg [facility] ([place]) Comment:Testing performed by : [place], [address] MCHC 34.2 32.3 - 35.7 g/dL [facility] ([place]) Comment:Testing performed by : [place], [address] RDW CV 11.8 11.1 - 14.9 % [facility] ([place]) Comment:Testing performed by : [facility], [facility], [place], [address] RDW SD 36.8 35.7 - 48.1 fL [facility] ([place]) Comment:Testing performed by : [facility], [facility], [place], [address] NRBC abs 0.00 0.00 - 0.01 K/cumm [facility] ([place]) Comment:Testing performed by : [facility], [facility], [place], [address] Blood 11/03/2024 10:3 0 AM FLASH DEVELOPER 11/03/2024 1:38 PM FLASH DEVELOPER Pedro Pavon MD LAB BLOOD ORDERABLES Final Re sult [facility] ([place]) [address] [facility] Department [place] [address] from Last 3 Months Insurance [facility] [employer] OPEN ACCESS [employer] OPEN ACCESS Care Teams Civil Geotechnical Engineer Relationship Specialty Start Date End Date Arya Pickering MD [address] [facility] [address] [place] [address] PCP - General Obstetrics and Gynecology 07/02/21
--- OUTSIDE RECORDS SUMMARY | 2024-11-21 14:18 | XMS_ITS | Referral Summary ---
Author Organization [facility] [address] [facility] lt Address [address] [facility] [address] [place] [address] Care Team Providers Care Specialized Developer Name Role Phone Arya Pickering MD Primary Care Provider [phone] [phone] Encounters Date Type Department Care Team Description 11/03/2024 10:30 AM SUPPLY AND DISTRIBUTION MANAGER Lab [address] [place] [address] Polycythemia (Primary Dx) 11/03/2024 11:00 AM SUPPLY AND DISTRIBUTION MANAGER Office Visit [facility] Oncology [address] [place] [address] Medical Office [facility] [address] [place] [address] Pedro Pavon MD Epistaxis (Primary Dx); Polycythemia, secondary 11/02/2024 Telephone [facility] Oncology [address] [place] [address] Medical Office [facility] [address] [place] [address] Pedro Pavon MD 10/19/2024 Orders Only [facility] Oncology [address] [place] [address] Office [facility] [address] [place] [address] Kayleigh Gonzalez, MARIEL Polycythemia, secondary (Primary Dx) from Last 3 Months Allergies Active Allergy Reactions Criticality Noted Date [...] Cholelithiasis Depression 06/01/2014 Overview (12/04/2016): Depression Immunizations Immunization Administration Dates Next Due DTaP 06/07/1998, 4,07/09/1993,05/02,02/25/1993 Hep B, Adolescent or Pediatric 03/31/1994,1992,07/09/1993 HiB 06/07/1998, 4,07/09/1993,05/02,02/25/1993 IPV 06/07/1998, 4,05/02/1993,02/25 Influenza LAIV (Nasal) 08/30/2006 Influenza, Quadrivalent, Spl it, Preservative Free, Intramuscular 06/10/2022 Influenza, Trivalent, IM (MDV) 10/19/2014 Influenza, Trivalent, Preser vative Free, Intramuscular 07/12/2017 MMR 06/07/1998,03/31/1996 Meningococcal C Conjugate 04/17/2008 TD Preservative Free 08/30/2006 Tdap 07/12/2017,04/17/2008 Varicella 01/27/1996 Social History Tobacco Use Types Packs/Day Years [...] on file Legal Sex Female 7:54 PM SUPPLY AND DISTRIBUTION MANAGER Gender Identity Not on file Sexual Orientation Not on file Last Filed Vital Signs Vital Sign Reading Time Taken Comments Blood Pressure 118/73 11/03/2024 11:01 AM SUPPLY AND DISTRIBUTION MANAGER Pulse 75 11/03/2024 11:01 AM SUPPLY AND DISTRIBUTION MANAGER Temperature 36.5 C (97.7 F) 11/03/2024 11:01 AM SUPPLY AND DISTRIBUTION MANAGER Respiratory Rate 20 11/03/2024 11:0 1 AM SUPPLY AND DISTRIBUTION MANAGER Oxygen Saturation 99% 11/03/2024 11: 01 AM SUPPLY AND DISTRIBUTION MANAGER Inhaled Oxygen Concentration - - Weight 81.6 kg (180 lb) 11/03/2024 11:0 1 AM SUPPLY AND DISTRIBUTION MANAGER with shoes on Height 157.5 cm (5' 2 ) 11/03/2024 11:0 1 AM SUPPLY AND DISTRIBUTION MANAGER with shoes on Body Mass Index 32.92 11/03/2024 11:01 AM SUPPLY AND DISTRIBUTION MANAGER Plan of Treatment Not on file Procedures Procedure Name Priority Date/Time Associated Diagnosis Comments DIFFERENTIAL AUTO Routine 11/03/2024 10: 30 AM SUPPLY AND DISTRIBUTION MANAGER Polycythemia CBC WITH AUTO DIFFERENTIAL Routine 11/03/2024 10:30 AM SUPPLY AND DISTRIBUTION MANAGER Polycythemia from Last 3 Months Results * Differential, auto (11/03/2024 10:30 AM SUPPLY AND DISTRIBUTION MANAGER) Neutrophil abs 3.1 1.5 - 6.5 K/cumm Comment:Testing performed by : [place], [address] Imm gran abs 0.0 0.0 - 0.1 K/cumm [facility] ([place]) Comment:Testing performed by : [place], [address] Lymphocyte abs 2.7 0.8 - 3.3 K/cumm [facility] ([place]) Comment:Testing performed by : [place], [address] Monocyte abs 0.4 0.2 - 0.8 K/cumm [facility] ([place]) Comment:Testing performed by : [facility], [facility], [place], [address] Eosinophil abs 0.2 0.0 - 0.5 K/cumm [facility] ([place]) Comment:Testing performed by : [facility], [facility], [place], [address] Basophil abs 0.1 0.0 - 0.1 K/cumm [facility] ([place]) Comment:Testing performed by : [place], [address] Neutrophil pct 48.5 % [facility] ([place]) Comment: Interpretive Data Percent cell count reference ranges are not reported, since discordance with absolute values may lead to misinterpretation of CBC data. Current Interpretive Data was last revised on 2017. Testing performed by: [facility], [place], [address] Imm gran pct 0.2 % [facility] ([place]) Comment: Interpretive Data Percent cell count reference ranges are not reported, since discordance with absolute values may lead to misinterpretation of CBC data. Current Interpretive Data was last revised on 2017. Testing performed by: [place], [address] Lymphocyte pct 41.5 % [facility] ([place]) Comment: Interpretive Data Percent cell count reference ranges are not reported, since discordance with absolute values may lead to misinterpretation of CBC data. Current Interpretive Data was last revised on 2017. Testing performed by: [place], [address] Monocyte pct 6.1 % [facility] ([place]) Comment: Interpretive Data Percent cell count reference ranges are not reported, since discordance with absolute values may lead to misinterpretation of CBC data. Current Interpretive Data was last revised on 2017. Testing performed by: [place], [address] Eosinophil pct 2.4 % [facility] ([place]) Comment: Interpretive Data Percent cell count reference ranges are not reported, since discordance with absolute values may lead to misinterpretation of CBC data. Current Interpretive Data was last revised on 2017. Testing performed by: [place], [address] Basophil pct 1.3 % [facility] ([place]) Comment: Interpretive Data Percent cell count reference ranges are not reported, since discordance with absolute values may lead to misinterpretation of CBC data. Current Interpretive Data was last revised on 2017. Testing performed by: [place], [address] Blood 11/03/2024 10:3 0 AM SUPPLY AND DISTRIBUTION MANAGER 11/03/2024 1:38 PM SUPPLY AND DISTRIBUTION MANAGER Pedro Pavon MD LAB BLOOD ORDERABLES Final Re sult [facility] ([place]) [address] [facility] Department [place] [address] * (ABNORMAL) CBC with auto differential (11/03/2024 10:30 AM SUPPLY AND DISTRIBUTION MANAGER) WBC 6.4 3.8 - 9.9 K/cumm Comment:Testing performed by : [facility], [place], [address] Hgb 16.0(H) 11.9 - 15.5 g/dL [facility] ([place]) Comment:Testing performed by : [place], [address] Hct 46.8(H) 35.6 - 45.5 % [facility] ([place]) Comment:Testing performed by : [place], [place], Plt 354 150 - 400 K/cumm [facility] ([place]) Comment:Testing performed by : [place], [address] MPV 10.5 9.1 - 12.3 fL [facility] ([place]) Comment:Testing performed by : [place], [address] RBC 5.42(H) 3.90 - 5.20 M/cumm [facility] ([place]) Comment:Testing performed by : [facility], [place], [address] MCV 86.3 81.3 - 96.4 fL [facility] ([place]) Comment:Testing performed by : [place], [address] MCH 29.5 27.1 - 33.3 pg [facility] ([place]) Comment:Testing performed by : [facility], [facility], [place], [address] MCHC 34.2 32.3 - 35.7 g/dL [facility] ([place]) Comment:Testing performed by : [facility], [facility], [place], [address] RDW CV 11.8 11.1 - 14.9 % [facility] ([place]) Comment:Testing performed by : [facility], [facility], [place], [address] RDW SD 36.8 35.7 - 48.1 fL [facility] ([place]) Comment:Testing performed by : [facility], [facility], [place], [address] NRBC abs 0.00 0.00 - 0.01 K/cumm [facility] ([place]) Comment:Testing performed by : [facility], [place], [address] Blood 11/03/2024 10:3 0 AM SUPPLY AND DISTRIBUTION MANAGER 11/03/2024 1:38 PM SUPPLY AND DISTRIBUTION MANAGER us Pedro Pavon MD LAB BLOOD ORDERABLES Final Re sult [facility] ([place]) [address] [facility] Department [place] [address] from Last 3 Months Insurance [facility] [employer] OPEN ACCESS [employer] OPEN ACCESS Care Teams Specialized Developer Relationship Specialty Start Date End Date Arya Pickering MD [address] [facility] [address] [place] [address] PCP - General Obstetrics and Gynecology 07/02/21
== END 2024-11-21 13:32 | disposition home or self-care (01) ==
PROVIDERS: Emergency Provider Nurse Practitioner; PCP Nurse Practitioner Adult Health
DX: S63.501A Unspecified sprain of right wrist, initial encounter (principal); X58.XXXA Exposure to other specified factors, initial encounter; E66.9 Obesity, unspecified; Z68.31 Body mass index [BMI] 31.0-31.9, adult; N80.9 Endometriosis, unspecified
CPT/HCPCS: 73110; 99213; G0463

== ENCOUNTER 2024-11-29 08:36 | Outpatient (CLI) | payer OTHER, SELFPAY ==
--- OUTSIDE RECORDS SUMMARY | 2024-11-29 08:56 | XMS_ITS | Clinical Summary ---
Author Organization [facility] [place] [facility] lt Address [address] [place] [address] Care Team Providers Care Procurement Professional Logistics Name Role Phone Arya Pickering MD Primary Care Provider [phone] [phone] Allergies Active Allergy Reactions Criticality Noted Date [...] Department Care Team Description 11/03/2024 11:00 AM HOT TAMALE WORKER Office Visit [facility] Oncology [address] [place] [address] [address] [place] [address] Pedro Pavon MD Epistaxis (Primary Dx); Polycythemia, secondary 11/03/2024 10:30 AM HOT TAMALE WORKER Lab [facility] [address] [place] [address] Polycythemia (Primary Dx) 11/02/2024 Telephone [facility] Oncology [address] [place] [address] [address] [place] [address] Pedro Pavon MD 10/19/2024 Orders Only [facility] Oncology [address] [place] [address] B [facility] [address] [place] [address] Kayleigh Gonzalez CLT Polycythemia, secondary (Primary Dx) [...] on file Legal Sex Female 7:54 PM HOT TAMALE WORKER Gender Identity Not on file Sexual Orientation Not on file Obstetrics History Last Filed Vital Signs Vital Sign Reading Time Taken Comments Blood Pressure 118/73 11/03/2024 11:01 AM HOT TAMALE WORKER Pulse 75 11/03/2024 11:01 AM HOT TAMALE WORKER Temperature 36.5 C (97.7 F) 11/03/2024 11:01 AM HOT TAMALE WORKER Respiratory Rate 20 11/03/2024 11:0 1 AM HOT TAMALE WORKER Oxygen Saturation 99% 11/03/2024 11: 01 AM HOT TAMALE WORKER Inhaled Oxygen Concentration - - Weight 81.6 kg (180 lb) 11/03/2024 11:0 1 AM HOT TAMALE WORKER with shoes on Height 157.5 cm (5' 2 ) 11/03/2024 11:0 1 AM HOT TAMALE WORKER with shoes on Body Mass Index 32.92 11/03/2024 11:01 AM HOT TAMALE WORKER Plan of Treatment Health Maintenance Due Date [...] DIFFERENTIAL AUTO Routine 11/03/2024 10: 30 AM HOT TAMALE WORKER Polycythemia CBC WITH AUTO DIFFERENTIAL Routine 11/03/2024 10:30 AM HOT TAMALE WORKER Polycythemia from Last 3 Months Results * Differential, auto (11/03/2024 10:30 AM HOT TAMALE WORKER) Neutrophil abs 3.1 1.5 - 6.5 K/cumm Comment:Testing performed by : [place], [address] Imm gran abs 0.0 0.0 - 0.1 K/cumm [facility] ([place]) Comment:Testing performed by : [place], [address] Lymphocyte abs 2.7 0.8 - 3.3 K/cumm [facility] ([place]) Comment:Testing performed by : [place], [address] Monocyte abs 0.4 0.2 - 0.8 K/cumm [facility] ([place]) Comment:Testing performed by : [place], [address] Eosinophil abs 0.2 0.0 - 0.5 K/cumm [facility] ([place]) Comment:Testing performed by : [place], [address] Basophil abs 0.1 0.0 - 0.1 K/cumm [facility] ([place]) Comment:Testing performed by : [facility] [place], [address] Neutrophil pct 48.5 % [facility] ([place]) Comment: Interpretive Data Percent cell count reference ranges are not reported, since discordance with absolute values may lead to misinterpretation of CBC data. Current Interpretive Data was last revised on 2017. Testing performed by: [facility] [place] [place], [place], [address] Imm gran pct 0.2 % [facility] ([place]) Comment: Interpretive Data Percent cell count reference ranges are not reported, since discordance with absolute values may lead to misinterpretation of CBC data. Current Interpretive Data was last revised on 2017. Testing performed by: [place], [address] Lymphocyte pct 41.5 % [facility] ([place]) Comment: Interpretive Data Percent cell count reference ranges are not reported, since discordance with absolute values may lead to misinterpretation of CBC data. Current Interpretive Data was last revised on 2017. Testing performed by: [place], [address] Monocyte pct 6.1 % [facility]) Comment: Interpretive Data Percent cell count reference ranges are not reported, since discordance with absolute values may lead to misinterpretation of CBC data. Current Interpretive Data was last revised on 2017. Testing performed by: [facility] [place] [place], [place], [address] Eosinophil pct 2.4 % [facility] ([place]) Comment: Interpretive Data Percent cell count reference ranges are not reported, since discordance with absolute values may lead to misinterpretation of CBC data. Current Interpretive Data was last revised on 2017. Testing performed by: [place], [address] Basophil pct 1.3 % [facility] ([place]) Comment: Interpretive Data Percent cell count reference ranges are not reported, since discordance with absolute values may lead to misinterpretation of CBC data. Current Interpretive Data was last revised on 2017. Testing performed by: [facility] [place] [place], [place], [address] Blood 11/03/2024 10:3 0 AM HOT TAMALE WORKER 11/03/2024 1:38 PM HOT TAMALE WORKER us Pedro Pavon MD LAB BLOOD ORDERABLES Final Re sult [facility] ([place]) [address] [place] [address] [place] [address] * (ABNORMAL) CBC with auto differential (11/03/2024 10:30 AM HOT TAMALE WORKER) WBC 6.4 3.8 - 9.9 K/cumm Comment:Testing performed by : [place], [address] Hgb 16.0(H) 11.9 - 15.5 g/dL [facility] ([place]) Comment:Testing performed by : [place], [address] Hct 46.8(H) 35.6 - 45.5 % [facility] ([place]) Comment:Testing performed by : [place], [address] Plt 354 150 - 400 K/cumm [facility] ([place]) Comment:Testing performed by : [place], [address] MPV 10.5 9.1 - 12.3 fL [facility] ([place]) Comment:Testing performed by : [place], [address] RBC 5.42(H) 3.90 - 5.20 M/cumm [facility] ([place]) Comment:Testing performed by : [place], [address] MCV 86.3 81.3 - 96.4 fL [facility]) Comment:Testing performed by : [place], [address] MCH 29.5 27.1 - 33.3 pg [facility] ([place]) Comment:Testing performed by : [place], [address] MCHC 34.2 32.3 - 35.7 g/dL [facility]) Comment:Testing performed by : [place], [address] RDW CV 11.8 11.1 - 14.9 % [facility]) Comment:Testing performed by : [facility], [place], [address] RDW SD 36.8 35.7 - 48.1 fL [facility] ([place]) Comment:Testing performed by : [facility], [place], [address] NRBC abs 0.00 0.00 - 0.01 K/cumm [facility] ([place]) Comment:Testing performed by : [facility], [place], [address] Blood 11/03/2024 10:3 0 AM HOT TAMALE WORKER 11/03/2024 1:38 PM HOT TAMALE WORKER Pedro Pavon MD LAB BLOOD ORDERABLES Final Re sult [facility] ([place]) [address] [facility] [place] [address] from Last 3 Months Insurance [facility] [employer] OPEN ACCESS [employer] OPEN ACCESS Care Teams Procurement Professional Logistics Relationship Specialty Start Date End Date Arya Pickering MD [address] [facility] [address] [place] [address] PCP - General Obstetrics and Gynecology 07/02/21
--- OUTSIDE RECORDS SUMMARY | 2024-11-29 08:56 | XMS_ITS | Clinical Summary ---
Author Organization [facility] Address [address] [place] [address] Care Team Providers Care Mechanical Maintenance Supervisor Name Role Phone Unavailable Primary Care Provider [...] Encounters Date Type Department Care Team Description 11/28/2024 External Device Data [facility] ABSTRACTION Provider, Abstract 11/04/2024 External Device Data [facility] ABSTRACTION Provider, [...] of 3 - 19+ 3-dose series) 12/30/2011 HPV/Cotest (21-29) 2013 PAP SMEAR 2013 CERVICAL CANCER SCREENING 2022 HPV/Cotest (30-65) 2022 PAP SMEAR 2022 INFLUENZA VACCINE (#1) 2024 08/30/2006 HPV VACCINES Aged Out No longer eligi ble based on patient's age to complete this topic
--- OUTSIDE RECORDS SUMMARY | 2024-11-29 08:56 | XMS_ITS | Encounter Summary ---
Author Organization [facility] Address [address] [place] [address] Care Team Providers Care Manager Spanish Name Role Phone Unavailable Primary Care Provider Unavailabl e Encounter Details Date Type Department Care Team (Late st Contact Info) Description 11/28/2024 External Device Data [facility] ABSTRACTION [...] as of this encounter Plan of Treatment Not on file documented as of this encounter Visit Diagnoses Not on filedocumented in this encounter
--- OUTSIDE RECORDS SUMMARY | 2024-11-29 08:56 | XMS_ITS | Referral Summary ---
Author Organization [facility] [place] 155 [facility] lt Address [address] [place] [address] Care Team Providers Care Online Merchandising Specialist Name Role Phone Arya Pickering MD Primary Care Provider [phone] [phone] Encounters Date Type Department Care Team Description 11/03/2024 10:30 AM TRANSPORT MEDIC Lab [address] [place] [address] Polycythemia (Primary Dx) 11/03/2024 11:00 AM TRANSPORT MEDIC Office Visit [facility] Oncology [address] [place] [address] Medical [address] [facility] [address] [place] [address] Pedro Pavon MD Epistaxis (Primary Dx); Polycythemia, secondary 11/02/2024 Telephone [facility] Oncology [address] [place] [address] Medical Office [facility] [address] [place] [address] Pedro Pavon MD 10/19/2024 Orders Only [facility] Oncology [address] [place] [address] [facility] [address] [place] [address] Kayleigh Gonzalez, MARIEL Polycythemia, secondary (Primary Dx) [...] on file Legal Sex Female 7:54 PM TRANSPORT MEDIC Gender Identity Not on file Sexual Orientation Not on file Last Filed Vital Signs Vital Sign Reading Time Taken Comments Blood Pressure 118/73 11/03/2024 11:01 AM TRANSPORT MEDIC Pulse 75 11/03/2024 11:01 AM TRANSPORT MEDIC Temperature 36.5 C (97.7 F) 11/03/2024 11:01 AM TRANSPORT MEDIC Respiratory Rate 20 11/03/2024 11:0 1 AM TRANSPORT MEDIC Oxygen Saturation 99% 11/03/2024 11: 01 AM TRANSPORT MEDIC Inhaled Oxygen Concentration - - Weight 81.6 kg (180 lb) 11/03/2024 11:0 1 AM TRANSPORT MEDIC with shoes on Height 157.5 cm (5' 2 ) 11/03/2024 11:0 1 AM TRANSPORT MEDIC with shoes on Body Mass Index 32.92 11/03/2024 11:01 AM TRANSPORT MEDIC Plan of Treatment Not on file Procedures Procedure Name Priority Date/Time Associated Diagnosis Comments DIFFERENTIAL AUTO Routine 11/03/2024 10: 30 AM TRANSPORT MEDIC Polycythemia CBC WITH AUTO DIFFERENTIAL Routine 11/03/2024 10:30 AM TRANSPORT MEDIC Polycythemia from Last 3 Months Results * Differential, auto (11/03/2024 10:30 AM TRANSPORT MEDIC) Neutrophil abs 3.1 1.5 - 6.5 K/cumm Comment:Testing performed by : [place], [address] Imm gran abs 0.0 0.0 - 0.1 K/cumm [facility] ([place]) Comment:Testing performed by : [place], [address] Lymphocyte abs 2.7 0.8 - 3.3 K/cumm [facility] ([place]) Comment:Testing performed by : [place], [address] Monocyte abs 0.4 0.2 - 0.8 K/cumm [facility] ([place]) Comment:Testing performed by : [facility], [place], [address] Eosinophil abs 0.2 0.0 - 0.5 K/cumm [facility] ([place]) Comment:Testing performed by : [facility], [place], [address] Basophil abs 0.1 0.0 - 0.1 K/cumm [facility] ([place]) Comment:Testing performed by : [place], [address] Neutrophil pct 48.5 % [facility] ([place]) Comment: Interpretive Data Percent cell count reference ranges are not reported, since discordance with absolute values may lead to misinterpretation of CBC data. Current Interpretive Data was last revised on 2017. Testing performed by: [facility], [place], [address] Imm gran pct 0.2 % [facility] ([place]) Comment: Interpretive Data Percent cell count reference ranges are not reported, since discordance with absolute values may lead to misinterpretation of CBC data. Current Interpretive Data was last revised on 2017. Testing performed by: [place], [address] Lymphocyte pct 41.5 % [facility] ([place]) Comment: Interpretive Data Percent cell count reference ranges are not reported, since discordance with absolute values may lead to misinterpretation of CBC data. Current Interpretive Data was last revised on 2017. Testing performed by: [place], [address] Monocyte pct 6.1 % [facility] ([place]) Comment: Interpretive Data Percent cell count reference ranges are not reported, since discordance with absolute values may lead to misinterpretation of CBC data. Current Interpretive Data was last revised on 2017. Testing performed by: [place], [address] Eosinophil pct 2.4 % [facility] ([place]) Comment: Interpretive Data Percent cell count reference ranges are not reported, since discordance with absolute values may lead to misinterpretation of CBC data. Current Interpretive Data was last revised on 2017. Testing performed by: [place], [address] Basophil pct 1.3 % [facility] ([place]) Comment: Interpretive Data Percent cell count reference ranges are not reported, since discordance with absolute values may lead to misinterpretation of CBC data. Current Interpretive Data was last revised on 2017. Testing performed by: [place], [address] Blood 11/03/2024 10:3 0 AM TRANSPORT MEDIC 11/03/2024 1:38 PM TRANSPORT MEDIC Pedro Pavon MD LAB BLOOD ORDERABLES Final Re sult [facility] ([place]) [address] [facility] [place] [address] * (ABNORMAL) CBC with auto differential (11/03/2024 10:30 AM TRANSPORT MEDIC) WBC 6.4 3.8 - 9.9 K/cumm Comment:Testing performed by : [facility], [place], [address] Hgb 16.0(H) 11.9 - 15.5 g/dL [facility] ([place]) Comment:Testing performed by : [place], [address] Hct 46.8(H) 35.6 - 45.5 % [facility] ([place]) Comment:Testing performed by : [place], [place], Plt 354 150 - 400 K/cumm [facility] ([place]) Comment:Testing performed by : [place], [address] MPV 10.5 9.1 - 12.3 fL [facility] ([place]) Comment:Testing performed by : [place], [address] RBC 5.42(H) 3.90 - 5.20 M/cumm [facility] ([place]) Comment:Testing performed by : [facility], [place], [address] MCV 86.3 81.3 - 96.4 fL [facility] ([place]) Comment:Testing performed by : [place], [address] MCH 29.5 27.1 - 33.3 pg [facility] ([place]) Comment:Testing performed by : [facility], [place], [address] MCHC 34.2 32.3 - 35.7 g/dL [facility] ([place]) Comment:Testing performed by : [facility], [place], [address] RDW CV 11.8 11.1 - 14.9 % [facility] ([place]) Comment:Testing performed by : [facility], [place], [address] RDW SD 36.8 35.7 - 48.1 fL [facility] ([place]) Comment:Testing performed by : [facility], [place], [address] NRBC abs 0.00 0.00 - 0.01 K/cumm [facility] ([place]) Comment:Testing performed by : [facility], [place], [address] Blood 11/03/2024 10:3 0 AM TRANSPORT MEDIC 11/03/2024 1:38 PM TRANSPORT MEDIC us Pedro Pavon MD LAB BLOOD ORDERABLES Final Re sult [facility] ([place]) [address] [facility] [place] [address] from Last 3 Months Insurance [facility] [employer] OPEN ACCESS [employer] OPEN ACCESS Care Teams Online Merchandising Specialist Relationship Specialty Start Date End Date Arya Pickering MD [address] [facility] [address] [place] [address] PCP - General Obstetrics and Gynecology 07/02/21
--- OUTSIDE RECORDS SUMMARY | 2024-11-29 08:56 | XMS_ITS | Clinical Summary ---
Author Organization [facility] Address [address] [place] [address] Phone Care Team Providers Care Human Resources Temp Name Role Phone Provider, None Primary Care [...] Comments Blood Pressure 150/87 08/26/2020 10:40 PM FIRE CONTROLMAN Pulse 100 08/26/2020 10:40 PM FIRE CONTROLMAN Temperature 36.8 C (98.3 F) 08/26/2020 8:24 PM FIRE CONTROLMAN Respiratory Rate 18 08/26/2020 10:40 PM FIRE CONTROLMAN Oxygen Saturation 98% 08/26/2020 10:40 PM FIRE CONTROLMAN Inhaled Oxygen Concentration - - Weight 78 kg (172 lb) 08/26/2020 8:24 PM FIRE CONTROLMAN Height 160 cm (5' 3 ) 08/26/2020 8:24 PM FIRE CONTROLMAN Body Mass Index 30.47 08/26/2020 8:24 PM FIRE CONTROLMAN Plan of Treatment Health Maintenance Due Date [...] this topic Insurance MEDICAID [place] Care Teams Human Resources Temp Relationship Specialty Start Date End Date Provider, None [place] PCP - General 08/26/20
[2024-11-29 19:46] LABS: Basophils Absolute Auto 0.1 K/mm3 (0.0-0.1); Basophils Percent Auto 1.2 % (0.2-1.2); Eosinophils Absolute Auto 0.1 K/mm3 (0-0.3); Eosinophils Percent Auto 1.5 % (0-4.4); Hematocrit 47.2 % (37.0-47.0); Hemoglobin 15.5 g/dL (12.0-15.0); Immature Granulocyte Absolute 0.01 K/mm3 (0.00-0.031); Immature Granulocyte Percent A 0.1 % (0-0.5); Lymphocytes Absolute Auto 2.19 K/mm3 (0.9-3.2); Lymphocytes Percent Auto 29.1 % (18.3-44.2); Mean Corpuscular HGB Conc 32.8 g/dl (32-36); Mean Corpuscular Hemoglobin 29.1 pg (26-34); Mean Corpuscular Volume 88.7 fl (80-100); Mean Platelet Volume 10.5 fl (7.4-10.4); Monocytes Absolute Auto 0.5 K/mm3 (0.1-0.6); Monocytes Percent Auto 7.2 % (2.6-8.5); Neutrophils Absolute Auto 4.6 K/mm3 (1.3-6.7); Neutrophils Percent Auto 60.9 % (45.5-73.1); Platelet Count Result 300 k/mm3 (150-375); Red Blood Count 5.32 M/mm3 (4.2-5.4); Red Cell Distribution Width 12.1 % (11.5-14.5); White Blood Count 7.5 K/mm3 (4.5-10.0)
== END 2024-11-29 08:37 | disposition home or self-care (01) ==
LOC: ANHBWCLAB 08:38
PROVIDERS: PCP Nurse Practitioner Adult Health; Visit Provider Nurse Practitioner Adult Health
DX: D75.1 Secondary polycythemia (principal)
CPT/HCPCS: 36415; 85025

== ENCOUNTER 2025-02-08 15:11 | Outpatient (CLI) | payer OTHER, SELFPAY ==
--- OUTSIDE RECORDS SUMMARY | 2025-02-08 15:45 | XMS_ITS | Clinical Summary ---
Author Organization [facility] 155 [facility] lto Address [address] [place] [address] Care Team Providers Care Acid Cleaner Name Role Phone Arya Pickering MD Primary Care Provider [phone] [phone] Allergies Active Allergy Reactions Criticality Noted Date [...] Other Medical 1999 [place]; Comments: DRS 09/07/2014 - Hx Other Medical 07/14/2016 Cholelithiasis; [...] on file Legal Sex Female 7:54 PM BEFORE SCHOOL BABYSITTER Gender Identity Not on file Sexual Orientation Not on file Obstetrics History Last Filed Vital Signs Vital Sign Reading Time Taken Comments Blood Pressure 118/73 11/03/2024 11:01 AM BEFORE SCHOOL BABYSITTER Pulse 75 11/03/2024 11:01 AM BEFORE SCHOOL BABYSITTER Temperature 36.5 C (97.7 F) 11/03/2024 11:01 AM BEFORE SCHOOL BABYSITTER Respiratory Rate 20 11/03/2024 11:0 1 AM BEFORE SCHOOL BABYSITTER Oxygen Saturation 99% 11/03/2024 11: 01 AM BEFORE SCHOOL BABYSITTER Inhaled Oxygen Concentration - - Weight 81.6 kg (180 lb) 11/03/2024 11:0 1 AM BEFORE SCHOOL BABYSITTER with shoes on Height 157.5 cm (5' 2) 11/03/2024 11:0 1 AM BEFORE SCHOOL BABYSITTER with shoes on Body Mass Index 32.92 11/03/2024 11:01 AM BEFORE SCHOOL BABYSITTER Plan of Treatment Health Maintenance Due Date Last Done Comments Cervical Cancer Screening 1992 Depression Screening 1992 Hepatitis C Screening 1992 Varicella Vaccines (2 of 2 - 2-dose childhood series) 09/27/2006 01/27/1996 Regular Well Visit/Exam 18-64 2010 Covid-19 Vaccine ( season) 2024 09/03/2021, 08/04/2021 Influenza Vaccine (Season Ended) 2025 06/10/2022, 07/12/2017, 10/19/2014, Additional history exists DTaP/Tdap/Td Vaccine (8 - Td or Tdap) 07/12/2027 07/12/2017, 04/17/2008, 08/30/2006, Additional history exists Hepatitis B Screening Completed 03/31/1994 , 08/11/1993, 07/09/1993 HPV Vaccines Aged Out No longer eligi ble based on patient's age to complete this topic Pneumococcal vaccine <65 Aged Out No longer eligible based on patient's age to complete this topic Insurance [facility] [employer] OPEN ACCESS [employer] OPEN ACCESS Care Teams Acid Cleaner Relationship Specialty Start Date End Date Arya Pickering MD [address] [facility] [address] [place] [address] PCP - General Obstetrics and Gynecology 07/02/21
--- OUTSIDE RECORDS SUMMARY | 2025-02-08 15:45 | XMS_ITS | Clinical Summary ---
Author Organization [facility] Address [address] [place] [address] Phone Care Team Providers Care Senior Resident Care Director Name Role Phone Provider, None Primary Care [...] Comments Blood Pressure 150/87 08/26/2020 10:40 PM PUBLICATIONS PRODUCTION SUPERVISOR Pulse 100 08/26/2020 10:40 PM PUBLICATIONS PRODUCTION SUPERVISOR Temperature 36.8 C (98.3 F) 08/26/2020 8:24 PM PUBLICATIONS PRODUCTION SUPERVISOR Respiratory Rate 18 08/26/2020 10:40 PM PUBLICATIONS PRODUCTION SUPERVISOR Oxygen Saturation 98% 08/26/2020 10:40 PM PUBLICATIONS PRODUCTION SUPERVISOR Inhaled Oxygen Concentration - - Weight 78 kg (172 lb) 08/26/2020 8:24 PM PUBLICATIONS PRODUCTION SUPERVISOR Height 160 cm (5' 3) 08/26/2020 8:24 PM PUBLICATIONS PRODUCTION SUPERVISOR Body Mass Index 30.47 08/26/2020 8:24 PM PUBLICATIONS PRODUCTION SUPERVISOR Plan of Treatment Health Maintenance Due Date Last Done Comments Hepatitis C Virus (HCV) Screening 1992 Human Papillomavirus (HPV) Immunization (1 - 3-dose series) 12/30/2007 SARS-COV-2 Immunization ( season) 2024 09/03/2021, 08/04/2021 Influenza Immunization (Season Ended) 2025 06/10/2022, 07/12/2017, 10/19/2014, Additional history exists Respiratory Syncytial Virus (RSV) Immunization (Adult) (1 - 1-dose 75+ series) 12/30/2067 Hepatitis B Immunization Completed 994, 08/11/1993, 07/09/1993 DTaP/Tdap/Td Immunization Discontinued 2016, 04/17/2008, 08/30/2006, Additional history exists TdaP Immunization Completed 07/12/2017, 04/17/2008 Meningococcal Immunization (ACWY) Aged Out No longer eligible based on patient's age to complete this topic Pneumococcal Immunization Combined Aged Out No longer eligible based on patient's age to complete this topic Rotavirus Immunization Aged Out No lo nger eligible based on patient's age to complete this topic Insurance MEDICAID [place] Care Teams Senior Resident Care Director Relationship Specialty Start Date End Date Provider, None [place] PCP - General 08/26/20
--- OUTSIDE RECORDS SUMMARY | 2025-02-08 15:45 | XMS_ITS | Referral Summary ---
Author Organization [facility] 155 [facility] lto Address [address] [place] [address] Care Team Providers Care Lock Fitter Name Role Phone Arya Pickering MD Primary Care Provider [phone] Allergies Active Allergy Reactions Criticality Noted Date [...] on file Legal Sex Female 7:54 PM MARKETING PROJECT MANAGER Gender Identity Not on file Sexual Orientation Not on file Last Filed Vital Signs Vital Sign Reading Time Taken Comments Blood Pressure 118/73 11/03/2024 11:01 AM MARKETING PROJECT MANAGER Pulse 75 11/03/2024 11:01 AM MARKETING PROJECT MANAGER Temperature 36.5 C (97.7 F) 11/03/2024 11:01 AM MARKETING PROJECT MANAGER Respiratory Rate 20 11/03/2024 11:0 1 AM MARKETING PROJECT MANAGER Oxygen Saturation 99% 11/03/2024 11: 01 AM MARKETING PROJECT MANAGER Inhaled Oxygen Concentration - - Weight 81.6 kg (180 lb) 11/03/2024 11:0 1 AM MARKETING PROJECT MANAGER with shoes on Height 157.5 cm (5' 2) 11/03/2024 11:0 1 AM MARKETING PROJECT MANAGER with shoes on Body Mass Index 32.92 11/03/2024 11:01 AM MARKETING PROJECT MANAGER Plan of Treatment Not on file Insurance [facility] [employer] OPEN ACCESS [employer] OPEN ACCESS Care Teams Lock Fitter Relationship Specialty Start Date End Date Arya Pickering MD [address] [address] PCP - General Obstetrics and Gynecology 07/02/21
--- OUTSIDE RECORDS SUMMARY | 2025-02-08 15:45 | XMS_ITS | Clinical Summary ---
Author Organization [facility] Address [address] [place] [address] Care Team Providers Care Cupola Repairer Name Role Phone Unavailable Primary Care Provider [...] 1:35 PM CDT Height 160 cm (5' 3) 11/16/2023 1:36 PM CDT Body Mass Index 33.13 11/16/2023 1:36 PM CDT Plan of Treatment Health Maintenance Due Date Last Done Comments DTAP/TDAP/TD VACCINES (2 - Tdap) 08/31/2006 08/30/19 07 HEPATITIS B VACCINES (1 of 3 - 19+ 3-dose series) 12/30/2011 HPV/Cotest (21-29) 2013 CERVICAL CANCER SCREENING 2022 HPV/Cotest (30-65) 2022 PAP SMEAR 2022 INFLUENZA VACCINE (#1) 2024 08/30/2006 HPV VACCINES Aged Out No longer eligi ble based on patient's age to complete this topic
[2025-02-08 20:07] LABS: Add Urine Microscopic? NO; Appearance Urine Clear (Clear); Bilirubin Urine Negative (Negative); Blood Urine Negative (Negative); Color Urine Yellow (Yellow); Glucose Urine UA Negative (Negative); Ketones Urine Negative (Negative); Leukocyte Esterase Ur Negative LEU/UL (Negative); Nitrate Urine Negative (Negative); Protein Urine Negative (Negative); Specific Grav Ur 1.019 (1.001-1.035); Urobilinogen Urine 0.2 mg/dL (<2.0)
== END 2025-02-08 15:12 | disposition home or self-care (01) ==
LOC: ANHBWCLAB 15:11
PROVIDERS: PCP Nurse Practitioner Adult Health; Visit Provider Nurse Practitioner Adult Health
DX: R39.9 Unspecified symptoms and signs involving the genitourinary system (principal)
CPT/HCPCS: 81003